=== PATIENT | female | born 1975 | race Caucasian/White ===

== ENCOUNTER → 2020-12-09 14:47 | Outpatient (REF) | payer MEDICAID, SELFPAY | LOC: HO.SL 14:47 | PROVIDERS: PCP Internal Medicine; Visit Provider Family Medicine | DX: Z13.89 Encounter for screening for other disorder (principal) ==

== ENCOUNTER 2022-11-06 19:55 | Outpatient (REF) | payer MEDICAID, SELFPAY ==
[2022-11-13 09:09] LABS: Buprenorphine NEGATIVE; Naloxone NEGATIVE; Norbuprenorphine NEGATIVE
== END 2022-11-06 19:56 | disposition home or self-care (01) ==
LOC: HO.HHCL 19:55
PROVIDERS: Visit Provider Family Medicine
DX: F11.20 Opioid dependence, uncomplicated (principal)
CPT/HCPCS: 80348; 80362

== ENCOUNTER 2022-12-04 11:18 | Outpatient (REF) | payer MEDICAID, SELFPAY ==
[2022-12-13 06:09] LABS: Immunoglobulin E 170 kU/L (<OR=114)
== END 2022-12-04 11:19 | disposition home or self-care (01) ==
LOC: HO.CHCLDS 11:18
PROVIDERS: Visit Provider Internal Medicine
DX: J45.50 Severe persistent asthma, uncomplicated (principal)
CPT/HCPCS: 36415; 82785

== ENCOUNTER 2023-06-06 10:45 | Outpatient (REF) | payer MEDICAID, SELFPAY ==
[2023-06-06 15:15] LABS: Appearance Urine Clear; Color Urine Yellow; Glucose Urine UA Negative (Negative); Leukocyte Esterase Urine Negative (Negative); Nitrite Urine Negative (Negative); Urine Blood Negative (Negative); Urine Ketones Negative (Negative); Urine Protein Negative (Neg-Trace)
[2023-06-06 15:26] LABS: Bacteria Urine 1+ (None Seen); Hyaline Casts Urine 0-2 /LPF (0-2); RBC Urine 0-2 /HPF (0-2); WBC Urine 0-5 /HPF (0-5)
[2023-06-06 15:57] LABS: Vitamin B12 250 pg/mL (200-900)
[2023-06-06 17:57] LABS: Alanine Aminotransferase 20 U/L (0-31); Albumin Level 4.2 g/dL (3.5-5.0); Alkaline Phosphatase 85 U/L (39-117); Anion Gap 14 (12-20); Aspartate Amino Transferase 16 U/L (5-31); Bilirubin Total 0.2 mg/dL (0.0-1.0); Blood Urea Nitrogen 11 mg/dL (9-16); Carbon Dioxide 24 mmol/L (22-29); Chloride 104 mmol/L (96-108); Estimated Glomerular Filt Rate > 60; Glucose Random 103 mg/dL (60-115); Potassium 3.5 mmol/L (3.3-5.1); Sodium 138 mmol/L (135-145)
[2023-06-06 18:18] LABS: TSH reflex Free T4 1.47 uIU/mL (0.32-4.0)
[2023-06-08 10:09] LABS: RPR Rapid Plasma Reagin NON-REACTIVE (NON-REACTIVE)
== END 2023-06-06 10:46 | disposition home or self-care (01) ==
LOC: HO.CHCLDS 10:45
PROVIDERS: Visit Provider Internal Medicine
DX: N39.3 Stress incontinence (female) (male) (principal); R41.3 Other amnesia
CPT/HCPCS: 36415; 80053; 81001; 82607; 84443; 86592

== ENCOUNTER 2023-06-08 12:46 | Outpatient (REF) | payer MEDICAID, SELFPAY | END 2023-06-08 12:47 | disposition home or self-care (01) | LOC: HO.CHCLDS 12:46 | PROVIDERS: Visit Provider Internal Medicine | DX: Z13.89 Encounter for screening for other disorder (principal) ==

== ENCOUNTER 2023-08-06 08:52 | Outpatient (REF) | payer MEDICAID, SELFPAY ==
--- NOTE | ~2023-08-06 | MM_ITS ---
EXAMINATION: MM SCREENING DIGITAL BREAST TOMOSYNTHESIS, BILATERAL CLINICAL INFORMATION: Screening. Asymptomatic. COMPARISON: Mammography: This study is compared with prior exams dating back to 2017. TECHNIQUE: Digital breast tomosynthesis is performed in both the craniocaudal and mediolateral oblique views along with computer-aided detection (CAD). Synthesized 2D images are generated from the tomosynthesis. FINDINGS: The breasts are almost entirely fatty (ACR BI-RADS breast composition Category a). There are no significant masses, abnormal calcifications, or other abnormalities. MM/MM tomosynthesis screening BI IMPRESSION: No mammographic evidence of malignancy. ASSESSMENT: BI-RADS BI-RADS 1 - Negative RECOMMENDATION: Routine annual mammography screening. 1 year F/U This examination should not preclude the clinical evaluation of a suspicious palpable abnormality. This patient's information was entered into a reminder system with a target due date for their next mammogram.
== END 2023-08-06 08:53 | disposition home or self-care (01) ==
LOC: HO.MAMMO 08:52
PROVIDERS: PCP Internal Medicine; Visit Provider Internal Medicine
DX: Z12.31 Encounter for screening mammogram for malignant neoplasm of breast (principal)
CPT/HCPCS: 77063; 77067

== ENCOUNTER → 2023-08-06 09:00 | Outpatient (BNV) | payer MEDICAID, SELFPAY | PROVIDERS: PCP Internal Medicine; Visit Provider Radiology Diagnostic Radiology | DX: Z12.31 Encounter for screening mammogram for malignant neoplasm of breast (principal) | CPT/HCPCS: 77063; 77067 ==

== ENCOUNTER 2024-03-05 12:42 | Outpatient (REF) | payer MEDICAID, SELFPAY ==
[2024-03-05 14:23] LABS: MANUAL DIFF FLAG NO
[2024-03-05 14:24] LABS: Basophils Percent Auto 0.3 % (0-2); Eosinophils Absolute Auto 0.1 X10*3/uL (0.0-0.4); Eosinophils Percent Auto 1.3 % (0-4); Hematocrit 41.5 % (37.0-47.0); Hemoglobin 13.8 g/dl (12.0-16.0); Imm Gran Abs Auto 0.03 X10*3/uL (0.00-0.03); Imm Gran Pct Auto 0.3 % (0.0-0.4); Lymphocytes Percent Auto 46.5 % (20-40); Mean Corpuscular HGB Conc 33.3 g/dl (31.0-35.0); Mean Corpuscular Hemoglobin 31.2 pg (27.0-33.0); Mean Corpuscular Volume 93.7 fL (80.0-98.0); Monocytes Absolute Auto 0.8 X10*3/uL (0.1-1.2); Monocytes Percent Auto 7.1 % (2-11); Neutrophils Absolute Auto 4.8 x10*3/uL (2.0-8.3); Neutrophils Percent Auto 44.5 % (45-73); Platelet Count 213 X10*3/uL (160-400); Red Blood Count 4.43 X10*6/uL (4.20-5.50); Red Cell Distribution Width 14.9 % (11.0-16.0); White Blood Count 10.7 X10*3/uL (4.8-10.8)
[2024-03-05 14:56] LABS: Alanine Aminotransferase 19 U/L (0-31); Albumin Level 4.3 g/dL (3.5-5.0); Alkaline Phosphatase 67 U/L (39-117); Anion Gap 13 (12-20); Aspartate Amino Transferase 25 U/L (5-31); Bilirubin Total 0.5 mg/dL (0.0-1.0); Blood Urea Nitrogen 12 mg/dL (9-16); Calcium 9.4 mg/dL (8.4-10.2); Carbon Dioxide 27 mmol/L (22-29); Chloride 105 mmol/L (96-108); Estimated Glomerular Filt Rate > 60; Glucose Random 86 mg/dL (60-115); Potassium 4.2 mmol/L (3.3-5.1); Sodium 141 mmol/L (135-145); Total Protein 6.9 g/dL (6.5-8.0)
[2024-03-05 15:02] LABS: Vitamin D 25-OH Total 22.1 ng/mL (>30)
[2024-03-05 15:08] LABS: Folate 15.7 ng/mL (> or = 4.0); Vitamin B12 545 pg/mL (200-900)
== END 2024-03-05 12:43 | disposition home or self-care (01) ==
LOC: HO.CHCLDS 12:42
PROVIDERS: Visit Provider Internal Medicine
DX: L84 Corns and callosities (principal); J45.40 Moderate persistent asthma, uncomplicated; R41.3 Other amnesia; M54.50 Low back pain, unspecified; G89.29 Other chronic pain
CPT/HCPCS: 36415; 80053; 82306; 82607; 82746; 85025

== ENCOUNTER 2024-03-18 15:39 | Outpatient (REF) | payer MEDICAID, SELFPAY ==
[2024-03-19 03:51] LABS: CT PCR NOT DETECTED (Not Detect.); NG PCR NOT DETECTED (Not Detect.)
[2024-03-19 11:48] LABS: Bacterial Vaginosis PCR POSITIVE (Negative); Candida Group PCR NOT DETECTED (Not Detect); Candida glab krusei PCR NOT DETECTED (Not Detect); Trichomonas vaginalis PCR NOT DETECTED (Not Detect)
== END 2024-03-18 15:40 | disposition home or self-care (01) ==
LOC: HO.HHCX 15:39
PROVIDERS: Visit Provider Internal Medicine
DX: N89.8 Other specified noninflammatory disorders of vagina (principal); K59.03 Drug induced constipation
CPT/HCPCS: 0352U; 74019; 87491; 87591

== ENCOUNTER 2024-07-24 11:44 | Outpatient (REF) | payer MEDICAID, SELFPAY ==
--- NOTE | ~2024-07-24 | XR_ITS ---
EXAMINATION: XR ABDOMEN KUB CLINICAL INDICATION: severe constipation COMPARISON: None available. TECHNIQUE: AP view of the abdomen. FINDINGS: No gas pattern is normal/nonspecific. There is no focally dilated loop. There is mild to moderate fecal residue seen throughout the colon and rectum. There are cholecystectomy clips present. The liver appears enlarged, with craniocaudad length of 28.5 cm. No additional organomegaly evident. Lung bases appear clear. There are mild to moderate degenerative changes in the lower lumbar spine. No acute bony abnormalities. XR/XR KUB IMPRESSION: Mild to moderate fecal burden seen throughout the colon. No bowel obstruction evident. Hepatomegaly. Cholecystectomy Electronically signed by: Froylan Saenz MD 07/24/2024 02:10 PM EDT
--- OUTSIDE RECORDS SUMMARY | 2024-07-24 14:38 | XMS_ITS | Data Portability ---
Author Organization SNEHAL ORDOÑEZ MD [facility], Main Office Address [address] [place] [address] Assessment No assessment recorded. Plan of Treatment Reminders Order Date Submit Date Provider Last Modified By Organization Details Last Modified Time Details Appointments WEIGHT MANAGMEN T F/U 2024 12:00P M Makenna Hernandez MD Not available Not available Not available Lab rapid flu (A+B) 2024 025 [email or web address] Main Office, [address] [place] [address], [phone], 05/29/2024 16:21:06 culture, wound 2023 024 [email or web address], [address] [place] [address], [address], 01/01/2024 08:54:19 Referral None recorded . Procedures None recorded . Surgeries None recorded . Imaging None recorded . Medication Orders predniso ne 20 mg tablet 2024 025 RAVI [facility], [address] [place], [address], 05/28/2024 17:44:09 azithrom ycin 500 mg tablet 2024 025 [email or web address] [facility], [address] [place], [address], 05/28/2024 18:02:13 [employer]flex COVID-19 Antigen Home Test kit 2024 025 [email or web address] [facility], [address] [place], [address], 05/29/2024 16:21:06 Biktarvy 50 mg-200 mg-25 mg tablet 2024 025 [facility], [address] [place], [address], 05/28/2024 17:44:08 Wegovy 0.25 mg/0.5 mL subcutan eous pen injector 2024 025 [facility], [address] [place], [address], 05/28/2024 17:44:08 fluconaz ole 100 mg tablet 2023 024 [facility], [address] [place], [address], 02/13/2024 10:59:58 doxycycl ine hyclate 100 mg capsule 2023 024 [facility], [address] [place], [address], 02/13/2024 10:59:56 Aldara 5 % topical cream packet 2023 024 [facility], [address] [place], [address], 02/13/2024 10:59:59 Wegovy 1.7 mg/0.75 mL subcutan eous pen injector 2023 024 [facility], [address] [place], [address], 02/13/2024 16:15:41 fluconaz ole 100 mg tablet 2023 024 [facility], [address] [place], [address], 12/25/2023 12:26:15 doxycycl ine hyclate 100 mg capsule 2023 024 [facility], [address] [place], [address], 12/25/2023 12:26:14 Aldara 5 % topical cream packet 2023 024 [facility] [address] [place], [address], 12/25/2023 12:26:15 Wegovy 1 mg/0.5 mL subcutan eous pen injector 2023 024 [facility], [address] [place] [address] , [address], [place], [address], 12/25/2023 12:26:18 doxycycl ine hyclate 100 mg capsule 2023 024 [facility] [address] [place], [address], 11/27/2023 13:26:08 Wegovy 0.25 mg/0.5 mL subcutan eous pen injector 2023 024 [email or web address] Not available 11/27/2023 13:26:06 Wegovy 0.5 mg/0.5 mL subcutan eous pen injector 2023 024 [facility] [address] [place], [address], 11/28/2023 09:53:48 Patient TargetsNo targets recorded. Patient InstructionsNo instructions recorded. Reason for Referral None Reported. Results Created Date Observation Date Name Description Value Unit Range Abnormal Flag Note LastModifiedBy Organization Detail LastModifiedTime 12/25/19 24 12/25/2023 BRADLEY SEAMAN RE performing lab Perfor nickie [facility] michaelle garcia, a medardo r of [facility] [address] [facility] [place] [address] Medic al Dire amy roberts MD Not Available [facility] [address], [place], [address], 12/29/2023 11:02:00 12/25/19 24 12/29/2023 MISCE LLANE OUS CULTU RE miscellaneou s culture NORMAL ORAL NAKUL PRESEN T DIRK DA CJ I DIRK DA ALBIC ANS Not Available [facility] [address] [place] [address], [address], 12/29/2023 11:02:00 12/25/19 24 12/25/2023 FUNGU S CULTU RE,OT HER performing lab Perfor nickie [facility] atorromero garcia, kecia batres r of [facility] h Of [address] [place] [address] Medic al Direc amy roberts MD Not Available [facility] [address] [place] [address], [address], 01/03/2024 13:50:44 12/25/19 24 01/01/2024 FUNGU S CULTU RE,OT HER fungus culture,othe r DIRK DA ALBIC ANS /DUBL INIEN SIS YEAST ORGAN ISM REPOR T COMME NT NOT DIRK DA ALBIC ANS/D UBLIN IENSI S OR CRYPT OCOCC US SPECI ES Not Available [facility] [address] [place] [address], [address], 01/03/2024 13:50:44 05/29/19 25 05/29/2024 ASPAR RIBERA AMINO TRANS FERAS E AST (SGOT) 14 unit/ L 10-42 Not Available [facility] [address] [place] [address], [address], 05/29/2024 15:55:24 05/29/19 25 05/29/2024 ASPAR RIBERA AMINO TRANS FERAS E note See Report [facility] michaelle garcia, [address] [place] [address], Anastasiya Angulo [facility] [address] Not Available [facility] [address] [place] [address], [address], 05/29/2024 15:55:24 05/29/19 25 05/29/2024 EDUARD NE AMINO TRANS FERAS E ALT (SGPT) 22 unit/ L 10-60 Not Available [facility] [address] [place] [address], [address], 05/29/2024 15:55:25 05/29/19 25 05/29/2024 EDUARD NE AMINO TRANS FERAS E note See Report [facility], [address] [facility], Oswaldochuy elyselaureano valenzuela, [place]astasiya [facility] [place] [place] [address] Not Available [facility] [address] [place], [address], 05/29/2024 15:55:25 05/29/19 25 05/29/2024 ELECT ROLYT E PANEL sodium 144 mmol/ L 133-14 5 Not Available [facility] [address] [place] [address], [address], 05/29/2024 15:55:26 05/29/19 25 05/29/2024 ELECT ROLYT E PANEL potassium 4.4 mmol/ L 3.5-5. 5 Not Available [facility] [address] [place] [address], [address], 05/29/2024 15:55:26 05/29/19 25 05/29/2024 ELECT ROLYT E PANEL chloride 109 mmol/ L 96-110 Not Available [facility] [address] [place] [address], [address], 05/29/2024 15:55:26 05/29/19 25 05/29/2024 ELECT ROLYT E PANEL CO2 28 mmol/ L 21-32 Not Available [facility] [address] [place] [address], [address], 05/29/2024 15:55:26 05/29/19 25 05/29/2024 ELECT ROLYT E PANEL anion gap 7 3-11 Not Available [facility] [address] [place] [address], [address], 05/29/2024 15:55:26 05/29/19 25 05/29/2024 ELECT ROLYT E PANEL note See Report [facility], [address] [facility], Oswaldochuy elyselaureano valenzuela, [place] [address] Not Available [facility] [address] [place], [address], 05/29/2024 15:55:26 05/29/19 25 05/29/2024 CREAT ININE creatinine 0.75 mg/dL 0.50-1 .10 Not Available [facility] [address] [place] [address], [address], 05/29/2024 15:55:27 05/29/19 25 05/29/2024 CREAT ININE eGFR 98 mL/mi n/1.7 3m2 >=60 Calcu latio n based on the Chron ic Kidne y Disea se Epide miolo gy Colla borat ion (CKD- EPI) equat ion refit witho ut adjus tment for race. Not Available [facility] [address] [place] [address], [address], 05/29/2024 15:55:27 05/29/19 25 05/29/2024 CREAT ININE note See Report [facility], [address] [facility], [address], [place] [address] Not Available [facility] [address] [place] [address], [address], 05/29/2024 15:55:27 05/29/19 25 05/29/2024 CBC WITH AUTO DIFFE RENTI AL WBC 7.8 K/mcL 4.8-10 .8 Not Available [facility] [address] [place] [address], [address], 05/29/2024 16:08:32 05/29/19 25 05/29/2024 CBC WITH AUTO DIFFE RENTI AL RBC 3.80 M/mcL 3.80-4 .80 Not Available [facility] [address] [place] [address], [address], 05/29/2024 16:08:32 05/29/19 25 05/29/2024 CBC WITH AUTO DIFFE RENTI AL hemoglobin 12.1 g/dL 11.5-1 6.0 Not Available [facility] [address] [place] [address], [address], 05/29/2024 16:08:32 05/29/19 25 05/29/2024 CBC WITH AUTO DIFFE RENTI AL hematocrit 37.6 % 35.0-4 7.0 Not Available [facility] [address] [place], [address], 05/29/2024 16:08:32 05/29/19 25 05/29/2024 CBC WITH AUTO DIFFE RENTI AL MCV 98.4 fL 79.0-9 8.0 high Not Available [facility] [address] [place], [address], 05/29/2024 16:08:32 05/29/19 25 05/29/2024 CBC WITH AUTO DIFFE RENTI AL MCH 31.7 pcg 27.0-3 2.0 Not Available [facility] [address] [place], [address], 05/29/2024 16:08:32 05/29/19 25 05/29/2024 CBC WITH AUTO DIFFE RENTI AL MCHC 32.2 g/dL 32.0-3 7.0 Not Available [facility] [address] [place], [address], 05/29/2024 16:08:32 05/29/19 25 05/29/2024 CBC WITH AUTO DIFFE RENTI AL RDW 14.7 % 11.0-1 5.0 Not Available [facility] [address] [place], [address], 05/29/2024 16:08:32 05/29/19 25 05/29/2024 CBC WITH AUTO DIFFE RENTI AL platelets 315 K/mcL 130-40 0 Not Available [facility] [address] [place], [address], 05/29/2024 16:08:32 05/29/19 25 05/29/2024 CBC WITH AUTO DIFFE RENTI AL MPV 9.9 fL 7.0-11 .0 Not Available [facility] [address] [place], [address], 05/29/2024 16:08:32 05/29/19 25 05/29/2024 CBC WITH AUTO DIFFE RENTI AL NRBC 0.0 % <1.0 Not Available [facility] [address] [place], [address], 05/29/2024 16:08:32 05/29/19 25 05/29/2024 CBC WITH AUTO DIFFE RENTI AL NRBC absolute 0.00 K/mcL <0.10 Not Available [facility] [address] [place], [address], 05/29/2024 16:08:32 05/29/19 25 05/29/2024 CBC WITH AUTO DIFFE RENTI AL note See Report [facility], [address] [facility], [address], [place] [address] Not Available [facility] [address] [place] [address], [address], 05/29/2024 16:08:32 05/29/19 25 05/29/2024 MANUA L DIFFE RENTI AL - INSTR UMENT DIFFE RENTI AL neutrophils % 49.0 % Not Available [facility] [address] [place], [address], 05/29/2024 16:08:33 05/29/19 25 05/29/2024 MANUA L DIFFE RENTI AL - INSTR UMENT DIFFE RENTI AL lymphocytes % 37.0 % Not Available [facility] [address] [place] [address], [address], 05/29/2024 16:08:33 05/29/19 25 05/29/2024 MANUA L DIFFE RENTI AL - INSTR UMENT DIFFE RENTI AL reactive lymphocyte 8.00 % Not Available [facility] [address] [place] [address], [address], 05/29/2024 16:08:33 05/29/19 25 05/29/2024 MANUA L DIFFE RENTI AL - INSTR UMENT DIFFE RENTI AL monocytes % 5.0 % Not Available [facility] [address] [place] [address], [address], 05/29/2024 16:08:33 05/29/19 25 05/29/2024 MANUA L DIFFE RENTI AL - INSTR UMENT DIFFE RENTI AL eosinophils % 1.0 % Not Available [facility] [address] [place], [address], 05/29/2024 16:08:33 05/29/19 25 05/29/2024 MANUA L DIFFE RENTI AL - INSTR UMENT DIFFE RENTI AL basophils % 1.0 % Not Available [facility] [address] [place], [address], 05/29/2024 16:08:33 05/29/19 25 05/29/2024 MANUA L DIFFE RENTI AL - INSTR UMENT DIFFE RENTI AL neutrophils absolute manual 3.82 K/mcL 1.50-7 .00 Not Available [facility] [address] [place], [address], 05/29/2024 16:08:33 05/29/19 25 05/29/2024 MANUA L DIFFE RENTI AL - INSTR UMENT DIFFE RENTI AL lymphocytes absolute 2.89 K/mcL 1.00-5 .00 Not Available [facility] [address] [place], [address], 05/29/2024 16:08:33 05/29/19 25 05/29/2024 MANUA L DIFFE RENTI AL - INSTR UMENT DIFFE RENTI AL reactive lymph abs manual 0.62 lym 0.00-0 .00 high Not Available [facility] [address] [place], [address], 05/29/2024 16:08:33 05/29/19 25 05/29/2024 MANUA L DIFFE RENTI AL - INSTR UMENT DIFFE RENTI AL monocytes absolute manual 0.39 K/mcL 0.20-1 .00 Not Available [facility] [address] [place], [address], 05/29/2024 16:08:33 05/29/19 25 05/29/2024 MANUA L DIFFE RENTI AL - INSTR UMENT DIFFE RENTI AL eosinophils absolute manual 0.08 K/mcL 0.00-0 .50 Not Available [facility] [address] [place], [address], 05/29/2024 16:08:33 05/29/19 25 05/29/2024 MANUA L DIFFE RENTI AL - INSTR UMENT DIFFE RENTI AL basophils absolute manual 0.08 K/mcL 0.00-0 .20 Not Available [facility] [address] [place], [address], 05/29/2024 16:08:33 05/29/19 25 05/29/2024 MANUA L DIFFE RENTI AL - INSTR UMENT DIFFE RENTI AL RBC morphology Consis tent with indice s consis tent with indice s, normal for newbor n Not Available [facility] [address] [place] [address], [address], 05/29/2024 16:08:33 05/29/19 25 05/29/2024 MANUA L DIFFE RENTI AL - INSTR UMENT DIFFE RENTI AL platelet morphology - wam See Note normal abnormal PLT: Lupe l Not Available [facility] [address] [place], [address], 05/29/2024 16:08:33 05/29/19 25 05/29/2024 MANUA L DIFFE RENTI AL - INSTR UMENT DIFFE RENTI AL note See Report abnormal [facility], [address] [facility], [place]aldoin gfiel d, [place] [address] Not Available [facility] [address] [place], [address], 05/29/2024 16:08:33 05/29/19 25 05/29/2024 TREPO NEMA PALLI DUM ANTIB LUIS WITH REFLE X TO RPR AND PARTI MOY AGGLU TINAT ION T. pallidum antibodies Negati ve negati ve Not Available [facility] [address] [place], [address], 05/29/2024 16:08:34 05/29/19 25 05/29/2024 TREPO NEMA PALLI DUM ANTIB LUIS WITH REFLE X TO RPR AND PARTI MOY AGGLU TINAT ION note See Report [facility], [address] [facility], [address], [facility] [place] [address] Not Available [facility] [address] [place], [address], 05/29/2024 16:08:34 05/29/19 25 05/29/2024 HIV 1 MOLEC ULAR STUDY QUANT ITATI VE HIV-1 RNA interpretati on Not Detect ed not detect ed HIV RNA not detec dayami, unabl e to repor t quant itati ve resul ts. Not Available [facility] [address] [place], [address], 05/30/2024 08:17:51 05/29/19 25 05/29/2024 HIV 1 MOLEC ULAR STUDY QUANT ITATI VE note See Report [facility], [address] [facility], [address], [facility] [place] [address] Not Available [facility] [address] [place], [address], 05/30/2024 08:17:51 05/29/19 25 05/29/2024 HEPAT ITIS C VIRUS QUANT ITATI VE MOLEC ULAR STUDY HCV qual interp Not Detect ed not detect ed HCV RNA not detec dayami, unabl e to repor t quant itati ve resul ts. Not Available [facility] [address] [place], [address], 05/30/2024 08:17:53 05/29/19 25 05/29/2024 HEPAT ITIS C VIRUS QUANT ITATI VE MOLEC ULAR STUDY note See Report [facility], [address] [facility], [address], [facility] [place] [address] Not Available [facility] [address] [place], [address], 05/30/2024 08:17:53 05/29/19 25 05/29/2024 CHLAM YDIA TRACH OMATI S AND NEISS ERIA GONOR RHOEA E MOLEC ULAR STUDY .note See Note Origi nal Order ing Provi donna: PAMELA IA T MARTO SMITA [facility] - [facility] - [address] [facility], [address], [place] [address] Not Available [facility] [address] [place], [address], 05/30/2024 09:06:52 05/29/19 25 05/29/2024 CHLAM YDIA TRACH OMATI S AND NEISS ERIA GONOR RHOEA E MOLEC ULAR STUDY neisseria gonorrhoeae PCR Negati ve negati ve Not Available [facility] [address] [place], [address], 05/30/2024 09:06:52 05/29/19 25 05/29/2024 CHLAM YDIA TRACH OMATI S AND NEISS ERIA GONOR RHOEA E MOLEC ULAR STUDY chlamydia trachomatis PCR Negati ve negati ve Not Available [facility] [address] [place] [address], [address], 05/30/2024 09:06:52 05/29/19 25 05/29/2024 LYMPH OCYTE T-RD L PANEL cd4 1007 cells /mcL 426-17 76 Not Available [facility] [address] [place] [address], [address], 05/30/2024 13:40:24 05/29/19 25 05/29/2024 LYMPH OCYTE T-RD L PANEL cd8 1080 cells /mcL 161-83 8 high Not Available [facility] [address] [place] [address], [address], 05/30/2024 13:40:24 05/29/19 25 05/29/2024 LYMPH OCYTE T-RD L PANEL cd4/cd8 ratio 0.93 0.90-4 .90 Not Available [facility] [address] [place] [address], [address], 05/30/2024 13:40:24 05/29/19 25 05/29/2024 LYMPH OCYTE T-RD L PANEL cd4 % 35 % 33-64 Not Available [facility] [address] [place] [address], [address], 05/30/2024 13:40:24 05/29/19 25 05/29/2024 LYMPH OCYTE T-RD L PANEL cd8 % 37 % 10-39 Not Available [facility] [address] [place], [address], 05/30/2024 13:40:24 05/29/19 25 05/29/2024 LYMPH OCYTE T-RD L PANEL note See Report [facility], [address] [facility], Sprin gfiel d, [place] [address] Not Available [facility] [address] [place], [address], 05/30/2024 13:40:24 05/29/19 25 05/29/2024 rapid flu (A+B) Flu negati ve Not Available Main Office [address] [place] [address], [address], 05/29/2024 16:10:34 10/15/19 24 09/10/2023 elect winifred ramey am No observ ation record ed. [email or web address] Main Office [address] [place] [address], [address], 10/15/2023 15:37:23 Result Notes None recorded. 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 Human immunodefi ciency virus infection; snomeddesc ription: Human immunodefi ciency virus infection; Report Immunity to Registry: Yes; Human immunodefi ciency virus [HIV] disease; snomeddesc ription: Human immunodefi ciency virus infection; Report Immunity to Registry: Yes; Not Available [facility] 4 06:57:46 Condyloma acuminata of cervix 734291065 Active 2018 Condyloma acuminata of cervix; snomeddesc ription: Condyloma acuminata of cervix; Report Immunity to Registry: Yes; Notes: hx anal/genit al; Not Available [facility] 4 06:57:46 Acute vaginitis 34679090 Active 2021 Acute vaginitis; snomeddesc ription: Bacterial vaginosis; Report Immunity to Registry: Yes; Not Available [facility] 4 06:57:47 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 Methicilli n resistant Staphyloco ccus aureus infection; snomeddesc ription: Methicilli n resistant Staphyloco ccus aureus infection; Report Immunity to Registry: Yes; Notes: MRSA susc Bactrim/Do xy/cipro/c sheldon/gent /levo/line zolid;vanc o/tigec/ri f; Methicill in resistant Staphyloco ccus aureus infection, unspecifie d site; snomeddesc ription: Methicilli n resistant Staphyloco ccus aureus infection; Report Immunity to Registry: Yes; Notes: MRSA susc Bactrim/Do xy/cipro/c sheldon/gent /levo/line zolid;vanc o/tigec/ri f; Not Available [facility] 4 06:57:47 Bacterial vaginosis 865332806 Active 2021 Bacterial vaginosis; snomeddesc ription: Bacterial vaginosis; Report Immunity to Registry: Yes; Not Available [facility] 4 06:57:47 Genital herpes simplex 81404497 Active 2019 Genital herpes simplex; snomeddesc ription: Genital herpes simplex; Report Immunity to Registry: Yes; Notes: HSV 1 and 2 pos serology; Not Available [facility] 4 06:57:47 Anogenita l herpesvir al infection 526423561 Active 2019 Anogenital herpesvira l infection, unspecifie d; snomeddesc ription: Genital herpes simplex; Report Immunity to Registry: Yes; Notes: HSV 1 and 2 pos serology; Not Available [facility] 4 06:57:47 COVID-19 474466908 Active 2021 COVID-19; snomeddesc ription: COVID-19; Report Immunity to Registry: Yes; COVID-19; snomeddesc ription: COVID-19; Report Immunity to Registry: Yes; Not Available [facility] 4 06:57:47 Problem Notes None recorded. Procedures Surgical History None recorded. Imaging Results Imaging Date Name Status LastModified by Organization Details LastModified Time 09/10/2023 electrocardiogram completed [email or web address] [address], [address], 10/15/2023 15:37:23 Procedure Notes None recorded. Medical Equipment None Reported. Allergies Allergen ID Allergen Name Allergen Category Reaction Reaction Severity Criticality Documentation Date Start Date Code Code System Note Provider Name and Address Organization Details Recorded Time 681 Bactrim medicatio n Not available Not available Not available 05/30/20232017 97121 9 RxNorm Comme nt: adver se_ev ent_t ype: 17371 8002; ; Not Available [facility] 4 06:50:43 682 morphine medicatio n Not available Not available Not available 05/30/20232017 7052 RxNorm Comme nt: adver se_ev ent_t ype: 55878 8002; ; Not Available [facility] 4 06:50:43 Medications Name Sig Start Date Stop Date Status Note LastModified by Organization Details LastModified Time medbox status USE DIRECTED active Not Available Not Available No t Available cyclobenz aprine 10 mg tablet TAKE ONE TABLET TWICE DAILY 09/19 completed Duration : 15; VACCINE_ IND: no; Not Available Not Available Not Available ziprasido ne 80 mg capsule TAKE ONE CAPSULE IN THE MORNING AND EVENING WITH MEALS active Not Available Not Available No t Available fluconazo le 100 mg tablet PLEASE SEE ATTACHED FOR DETAILED DIRECTIO NS active Not Available Not Available No t Available lamotrigi ne 150 mg tablet TAKE ONE TABLET EVERY MORNING 12/25 completed Duration : 30; VACCINE_ IND: no; Not Available Not Available Not Available silver sulfadiaz ine 1 % topical cream APPLY TOPICALL Y TO BUTTOCK WOUNDS TWICE DAILY UNTIL HEALED 02/10 completed Duration : 14; VACCINE_ IND: no; Not Available Not Available Not Available nystatin 100,000 unit/mL oral suspensio n 5cc po swish and swallow qid 04/18 completed Duration : 10; VACCINE_ IND: no; SU_FULL_ NAME: Makenna naranjo; Not Available Not Available Not Available clonidine HCl 0.1 mg tablet TAKE ONE TABLET BY MOUTH TWICE DAILY NEEDED FOR ANXIETY, OR TAKE 1 OR 2 TABLETS BY MOUTH AT BEDTIME NEEDED 01/05 completed Duration : 30; VACCINE_ IND: no; Not Available Not Available Not Available prednison e 10 mg tablet TAKE 6 TABLETS FOR 2 DAYS, THEN TAKE 5 TABLETS FOR 2 DAYS, THEN TAKE 4 TABLETS FOR 2 DAYS, THEN TAKE 3 TABLETS FOR 2 DAYS, TAKE 2 TABLETS FOR 2 DAYS, TAKE 1 TABLET FOR 2 DAYS 12/19 completed Duration : 12; VACCINE_ IND: no; Not Available Not Available Not Available venlafaxi ne ER 75 mg capsule,e xtended release 24 hr TAKE ONE CAPSULE EVERY MORNING WITH 150 MG CAPSULE active Not Available Not Available No t Available doxycycli ne hyclate 100 mg capsule TAKE 1 CAPSULE BY MOUTH TWICE A DAY FOR 10 DAYS active Not Available Not Available No t Available lamotrigi ne 200 mg tablet TAKE 1 TABLET BY MOUTH TWICE A DAY active Not Available Not Available No t Available nicotine 14 mg/24 hr daily transderm al patch APPLY 1 PATCH TOPICALL Y TO THE SKIN DAILY IN THE MORNING THEN REMOVE AT BEDTIME DIRECTED DO NOT SMOKE WHILE USING PATCH 12/19 completed Duration : 28; VACCINE_ IND: no; Not Available Not Available Not Available ipratropi um 0.5 mg-albute rol 3 mg (2.5 mg base)/3 mL nebulizat ion soln USE ONE AMPULE USING A NEBULIZE R EVERY 6 TO 8 HOURS 12/19 completed Duration : 8; VACCINE_ IND: no; Not Available Not Available Not Available clindamyc in HCl 300 mg capsule TAKE ONE CAPSULE BY MOUTH THREE TIMES DAILY FOR 7 DAYS active Not Available Not Available No t Available albuterol sulfate 2.5 mg/3 mL (0.083 %) solution for nebulizat ion INHALE ONE AMPULE USING A NEBULIZE R FOUR TIMES DAILY NEEDED. 05/12 completed Duration : 8; VACCINE_ IND: no; Not Available Not Available Not Available ammonium lactate 12 % lotion Apply to soles of feet daily. At night wear socks to bed active Not Available Not Available No t Available citalopra m 40 mg tablet TAKE ONE TABLET EVERY MORNING 06/30 completed Duration : 30; VACCINE_ IND: no; Not Available Not Available Not Available azithromy aurelia 250 mg tablet TAKE 2 TABLETS BY MOUTH ON DAY 1, THEN TAKE 1 TABLET DAILY ON DAYS 2-5 active Not Available Not Available No t Available tizanidin e 4 mg tablet TAKE ONE TABLET TWICE DAILY 05/12 completed Duration : 7; VACCINE_ IND: no; Not Available Not Available Not Available albuterol sulfate 1.25 mg/3 mL solution for nebulizat ion USE ONE AMPULE USING A NEBULIZE R EVERY 4 HOURS NEEDED FOR SHORTNES S OF BREATH 12/19 completed Duration : 4; VACCINE_ IND: no; Not Available Not Available Not Available prednison e 20 mg tablet TAKE ONE TABLET EVERY DAY FOR 5 DAYS active Not Available Not Available No t Available clonazepa m 0.5 mg tablet TAKE ONE TABLET THREE TIMES DAILY NEEDED FOR ANXIETY 02/10 completed Duration : 30; VACCINE_ IND: no; Not Available Not Available Not Available terconazo le 0.8 % vaginal cream INSERT 1 APPLICAT ORFUL VAGINALL Y EVERY NIGHT AT BEDTIME FOR 3 DAYS 05/30 completed Duration : 3; VACCINE_ IND: no; Not Available Not Available Not Available clonazepa m 1 mg tablet TAKE 1 TABLET BY MOUTH THREE TIMES A DAY NEEDED FOR ANXIETY active Not Available Not Available No t Available clindamyc in HCl 150 mg capsule TAKE ONE CAPSULE BY MOUTH FOUR TIMES DAILY FOR SEVEN DAYS 06/27 completed Duration : 7; VACCINE_ IND: no; Not Available Not Available Not Available venlafaxi ne ER 150 mg capsule,e xtended release 24 hr TAKE 1 CAPSULE BY MOUTH EVERY DAY IN THE MORNING active Not Available Not Available No t Available olanzapin e 10 mg tablet TAKE ONE TABLET BY MOUTH AT BEDTIME 12/25 completed Duration : 30; VACCINE_ IND: no; Not Available Not Available Not Available metronida zole 500 mg tablet TAKE ONE TABLET TWICE DAILY UNTIL FINISHED active Not Available Not Available No t Available valacyclo vir 500 mg tablet TAKE ONE TABLET EVERY NIGHT AT BEDTIME 2024 active Not Available Not Available Not Avai lable ciproflox acin 500 mg tablet TAKE 1 TABLET BY MOUTH EVERY 12 HOURS FOR 5 DAYS active Not Available Not Available No t Available omeprazol e 40 mg capsule,d elayed release 1 tab p qd 2023 active Not Available Not Available Not Avai lable Nicotrol 10 mg inhalatio n cartridge INHALE ONE INHALATI ON SIX TIMES DAILY NEEDED 12/19 completed Duration : 28; VACCINE_ IND: no; Not Available Not Available Not Available tramadol 50 mg tablet TAKE ONE TABLET EVERY 6 HOURS NEEDED FOR PAIN 09/19 completed Duration : 5; VACCINE_ IND: no; Not Available Not Available Not Available acetamino phen 500 mg tablet TAKE TWO TABLETS EVERY 6 HOURS NEEDED FOR PAIN active Not Available Not Available No t Available lidocaine -prilocai ne 2.5 %-2.5 % topical cream APPLY TO THE AFFECTED AREA(S) DAILY DIRECTED active Not Available Not Available No t Available baclofen 20 mg tablet TAKE ONE TABLET TWICE DAILY NEEDED FOR MUSCLE SPASMS 02/16 completed Duration : 15; VACCINE_ IND: no; Not Available Not Available Not Available ketorolac 10 mg tablet TAKE ONE TABLET EVERY TWELVE HOURS FOR UP TO FIVE DAYS total 05/12 completed Duration : 3; VACCINE_ IND: no; Not Available Not Available Not Available ciclopiro x 8 % topical solution Apply daily to nails, clean medicati on residue off of nail plate every 3 days with rubbing alcohol active Not Available Not Available No t Available oxycodone -acetamin ophen 5 mg-325 mg tablet TAKE 1 TO 2 TABLETS BY MOUTH EVERY 6 HOURS NEEDED FOR MODERATE PAIN 12/25 completed Duration : 7; VACCINE_ IND: no; Not Available Not Available Not Available famotidin e 20 mg tablet TAKE ONE TABLET TWICE DAILY IN THE MORNING AND AT BEDTIME active Not Available Not Available No t Available methocarb damon 750 mg tablet TAKE 2 TABLETS BY MOUTH EVERY 6 HOURS NEEDED FOR ANALGESI A active Not Available Not Available No t Available imiquimod 5 % topical cream packet APPLY TO THE AFFECTED WART AREA(S) BY TOPICAL ROUTE EVERY OTHER DAY active Not Available Not Available No t Available benzonata te 100 mg capsule TAKE ONE CAPSULE THREE TIMES DAILY NEEDED FOR COUGH active Not Available Not Available No t Available Mylanta Double-St rength 400 mg-400 mg-40 mg/5 mL oral suspensio n 400 mg-400 mg-40 mg/5 mL Quantity : 60; Duration : 30; 2 refill(s ) 05/12 completed Frequenc y: bid; Duration : 30; VACCINE_ IND: no; SU_FULL_ NAME: Makenna naranjo; Not Available Not Available Not Available ranitidin e 150 mg tablet TAKE ONE TABLET TWICE DAILY IN THE MORNING AND AT BEDTIME 04/18 completed Duration : 30; VACCINE_ IND: no; Not Available Not Available Not Available lidocaine 5 % topical patch APPLY 1 PATCH TO SKIN. LEAVE ON FOR 12 HOURS, THEN OFF FOR 12 HOURS DIRECTED . 03/01 completed Duration : 30; VACCINE_ IND: no; Not Available Not Available Not Available benztropi ne 1 mg tablet TAKE ONE TABLET TWICE DAILY IN THE MORNING AND AT BEDTIME active Not Available Not Available No t Available nicotine 21 mg/24 hr daily transderm al patch APPLY 1 PATCH TOPICALL Y TO THE SKIN DAILY IN THE MORNING THEN REMOVE AT BEDTIME DIRECTED DO NOT SMOKE WHILE USING PATCH 12/19 completed Duration : 28; VACCINE_ IND: no; Not Available Not Available Not Available Advair Diskus 500 mcg-50 mcg/dose powder for inhalatio n INHALE ONE PUFF TWICE DAILY, RINSE MOUTH AFTER USE active Not Available Not Available No t Available mupirocin calcium 2 % topical cream apply small ampunt on affected skin area daily 06/16 completed Duration : 14; VACCINE_ IND: no; SU_FULL_ NAME: Makenna naranjo; Not Available Not Available Not Available docusate sodium 100 mg capsule TAKE ONE CAPSULE AT BEDTIME NEEDED FOR CONSTIPA TION active Not Available Not Available No t Available monteluka st 10 mg tablet TAKE ONE TABLET EVERY NIGHT AT BEDTIME active Not Available Not Available No t Available mupirocin 2 % topical ointment APPLY A SMALL AMOUNT TO AFFECTED AREA 3 TIMES A DAY active Not Available Not Available No t Available ziprasido ne 40 mg capsule TAKE ONE CAPSULE IN THE MORNING AND EVENING WITH MEALS active Not Available Not Available No t Available ibuprofen 600 mg tablet TAKE 1 TABLET BY MOUTH EVERY 6 HOURS NEEDED FOR ANALGESI A MAX 2400 MG/DAY active Not Available Not Available No t Available zolpidem 10 mg tablet TAKE 1 TABLET BY MOUTH EVERY DAY AT BEDTIME NEEDED FOR SLEEP active Not Available Not Available No t Available ondansetr on 4 mg disintegr ating tablet TAKE 1 TABLET BY MOUTH EVERY 6-8 HOURS 05/30 completed Duration : 3; VACCINE_ IND: no; Not Available Not Available Not Available doxycycli ne hyclate 100 mg tablet TAKE ONE TABLET TWICE DAILY FOR 10 DAYS. TAKE WITH FULL GLASS OF WATER AND DO NOT LIE DOWN FOR 30 MINUTES AFTER active Not Available Not Available No t Available olanzapin e 20 mg tablet TAKE ONE TABLET EVERY NIGHT AT BEDTIME active Not Available Not Available No t Available lamotrigi ne 100 mg tablet TAKE ONE TABLET AT BEDTIME 09/19 completed Duration : 30; VACCINE_ IND: no; Not Available Not Available Not Available diazepam 5 mg tablet TAKE 1 TABLET BY MOUTH 3 TIMES A DAY NEEDED FOR ANAL SPASMS 12/25 completed Duration : 13; VACCINE_ IND: no; Not Available Not Available Not Available amoxicill in 875 mg-potass ium clavulana te 125 mg tablet TAKE ONE TABLET TWICE DAILY FOR 10 DAYS active Not Available Not Available No t Available Ventolin HFA 90 mcg/actua tion aerosol inhaler INHALE TWO PUFFS BY MOUTH EVERY FOUR HOURS NEEDED FOR WHEEZING active Not Available Not Available No t Available oxycodone 5 mg tablet TAKE ONE TABLET EVERY 6 HOURS NEEDED FOR PAIN 09/19 completed Duration : 5; VACCINE_ IND: no; Not Available Not Available Not Available Pneumovax -23 25 mcg/0.5 mL injection syringe - Quantity : ; 0 refill(s ) 2021 active VACCINE_ IND: yes; VACCINE_ NAME: pneumoco ccal polysacc haride PPV23; SU_FULL_ NAME: Makenna naranjo; VIS_DATE : 14:43:37 .0; Not Available Not Available Not Available azithromy aurelia 500 mg tablet TAKE 1 TABLET BY MOUTH ONCE A DAY FOR 2 DAYS active Not Available Not Available No t Available guaifenes in 400 mg tablet TAKE ONE TABLET EVERY 8 HOURS NEEDED FOR COUGH 02/16 completed Duration : 10; VACCINE_ IND: no; Not Available Not Available Not Available nicotine (polacril ex) 4 mg buccal lozenge Dissolve 1 lozenge (4 mg) in the mouth every 2 (two) hours if needed for smoking cessatio n. active Not Available Not Available No t Available Jolivette 0.35 mg tablet TAKE 1 TABLET BY MOUTH EVERY DAY TAKE AT THE SAME TIME EACH DAY 05/30 completed Duration : 84; VACCINE_ IND: no; Not Available Not Available Not Available duloxetin e 30 mg capsule,d elayed release TAKE ONE CAPSULE EVERY MORNING 02/16 completed Duration : 30; VACCINE_ IND: no; Not Available Not Available Not Available Flovent HFA 220 mcg/actua tion aerosol inhaler INHALE 1 PUFF BY MOUTH TWICE DAILY, RINSE MOUTH AFTER USE 06/30 completed Duration : 60; VACCINE_ IND: no; Not Available Not Available Not Available Hibiclens use daily as directed for 10 days 07/16 completed Duration : 10; VACCINE_ IND: no; SU_FULL_ NAME: Makenna naranjo; Not Available Not Available Not Available varenicli ne tartrate 0.5 mg (11)-1 mg (42) tablets in a dose pack TAKE DIRECTED ON PACKAGE active Not Available Not Available No t Available Advair HFA 230 mcg-21 mcg/actua tion aerosol inhaler INHALE TWO PUFFS TWICE DAILY IN THE MORNING AND AT BEDTIME, RINSE MOUTH AFTER USE active Not Available Not Available No t Available cholecalc iferol (vitamin D3) 25 mcg (1,000 unit) tablet TAKE ONE TABLET EVERY MORNING active Not Available Not Available No t Available Symbicort 160 mcg-4.5 mcg/actua tion HFA aerosol inhaler INHALE TWO PUFFS BY MOUTH EVERY TWELVE HOURS. RINSE MOUTH AFTER USE active Not Available Not Available No t Available Engerix-B (PF) 20 mcg/mL intramusc ular suspensio n 20 mcg/mL Quantity : ; 0 refill(s ) 2021 active VACCINE_ IND: yes; VACCINE_ DOCUMENT _DATE: 00:00:00 ; VACCINE_ DOCUMENT _NAME: Hepatiti s B: 01/21/21 ; VACCINE_ NAME: Hep B, adult; SU_FULL_ NAME: Makenna naranjo; VIS_DATE : 15:37:44 .0; Not Available Not Available Not Available diclofena c 1 % topical gel apply 2 gram by topical route 4 times every day to the affected area(s) 02/16 completed Duration : 8; VACCINE_ IND: no; Not Available Not Available Not Available Norvir 100 mg tablet TAKE ONE TABLET AT BEDTIME 05/18 completed Duration : 30; VACCINE_ IND: no; Not Available Not Available Not Available Suboxone 8 mg-2 mg sublingua l film DISSOLVE 3 FILMS UNDER THE TONGUE DAILY active Not Available Not Available No t Available Kassandra 30 mg tablet TAKE 1 TABLET BY MOUTH ONCE DIRECTED 09/19 completed Duration : 1; VACCINE_ IND: no; Not Available Not Available Not Available Chantix Continuin g Month Box 1 mg tablet TAKE ONE TABLET BY MOUTH TWICE DAILY AFTER MEALS WITH GLASS OF WATER 12/25 completed Duration : 28; VACCINE_ IND: no; Not Available Not Available Not Available imiquimod 3.75 % topical cream in a pump 3.75% 7.5 Gram(s) APPLY SMALL AMOUNT TO WARTS THREE TIMES PER WEEK UNTIL THERE IS TOTAL CLEARANC E OF THE WARTS OR FOR A MAXIMUM OF 16 WEEKS. A THIN LAYER OF IMIQUIMO D CREAM SHOULD BE APPLIED TO WART AND RUBBED IN UNTIL THE CREAM IS NO LONGER VISIBLE. IMIQUIMO D CREAM SHOULD BE APPLIED PRIOR TO NORMAL SLEEPING HOURS AND LEFT ON THE SKIN FOR 6 TO 10 HOURS, AFTER WHICH THE CREAM SHOULD BE REMOVED BY WASHING THE AREA WITH MILD SOAP AND WATER. 08/29 completed Duration : 14; VACCINE_ IND: no; SU_FULL_ NAME: Makenna naranjo; Not Available Not Available Not Available Prezista 800 mg tablet TAKE ONE TABLET AT BEDTIME 05/18 completed Duration : 30; VACCINE_ IND: no; Not Available Not Available Not Available Suboxone 4 mg-1 mg sublingua l film DISSOLVE 1 FILM UNDER THE TONGUE TWICE DAILY active Not Available Not Available No t Available Tivicay 50 mg tablet TAKE ONE TABLET AT BEDTIME 05/18 completed Duration : 30; VACCINE_ IND: no; Not Available Not Available Not Available Spiriva Respimat 2.5 mcg/actua tion solution for inhalatio n INHALE TWO PUFFS ONCE DAILY active Not Available Not Available No t Available Liletta 20.4 mcg/24 hr (up to 8 years) 52 mg intrauter ine device BRING TO OFFICE FOR INSERTIO N 09/19 completed Duration : 1; VACCINE_ IND: no; Not Available Not Available Not Available Valeria-Dryl 25 mg tablet TAKE 1 TABLET BY MOUTH EVERY 6 HOURS NEEDED FOR ITCHING 06/27 completed Duration : 78; VACCINE_ IND: no; Not Available Not Available Not Available naloxone 4 mg/actuat ion nasal spray FOR SUSPECTE D OPIOID OVERDOSE . SPRAY 0.1mL IN ONE NOSTRIL. REPEAT IN ALTERNAT E NOSTRIL EVERY 2-3 MINUTES IF NEEDED. SEEK MEDICAL ATTENTIO N IMMEDIAT AMANDEEP EVEN IF PT RESPONDS . 06/27 completed Duration : 1; VACCINE_ IND: no; Not Available Not Available Not Available Vraylar 1.5 mg capsule TAKE 1 CAPSULE BY MOUTH EVERY DAY IN THE MORNING active Not Available Not Available No t Available Vraylar 3 mg capsule TAKE 1 CAPSULE BY MOUTH EVERY NIGHT AT BEDTIME. active Not Available Not Available No t Available Colace 2-In-1 8.6 mg-50 mg tablet 50 mg-8.6 mg Quantity : 60; Duration : 30; 2 refill(s ) 09/19 completed Frequenc y: bid; Duration : 30; VACCINE_ IND: no; SU_FULL_ NAME: Makenna naranjo; Not Available Not Available Not Available Biktarvy 50 mg-200 mg-25 mg tablet TAKE ONE TABLET EVERY NIGHT AT BEDTIME 2024 active Not Available Not Available Not Avai meño Symtuza 800 mg-150 mg-200 mg-10 mg tablet 1 tab po qd d/c prezista d/c norvir d/c tivicay 12/25 completed Duration : 30; VACCINE_ IND: no; SU_FULL_ NAME: Makenna naranjo; Not Available Not Available Not Available Afluria Quad 60 mcg (15 mcg x 4)/0.5 mL IM suspensio n quadriva lent Quantity : ; 0 refill(s ) 2018 active VACCINE_ IND: yes; VACCINE_ NAME: influenz a, injectab le, quadriva lent; SU_FULL_ NAME: Mrs. Cinthia Card; VIS_DATE : 18:43:40 .0; Not Available Not Available Not Available Afluria Quad 60 mcg (15 mcg x 4)/0.5 mL intramusc ular susp. quadriva lent Quantity : ; 0 refill(s ) 2018 active VACCINE_ IND: yes; VACCINE_ NAME: influenz a, injectab le, quadriva lent; SU_FULL_ NAME: Makenna Huntnabeel marcella; VIS_DATE : 15:02:01 .0; Not Available Not Available Not Available B Complex 1 (with folic acid) 0.4 mg tablet TAKE ONE TABLET EVERY MORNING active Not Available Not Available No t Available Afluria Quad 60 mcg (15 mcg x 4)/0.5 mL intramusc ular susp. quadriva lent Quantity : ; 0 refill(s ) 2019 active VACCINE_ IND: yes; VACCINE_ DOCUMENT _DATE: 00:00:00 ; VACCINE_ DOCUMENT _NAME: Nikolas Mancilla a: 11/21/18 (Updated annually ); VACCINE_ NAME: influenz a, injectab le, quadriva lent; SU_FULL_ NAME: Makenna Tanner naranjo; VIS_DATE : 19:09:41 .0; Not Available Not Available Not Available Wegovy 1.7 mg/0.75 mL subcutane ous pen injector INJECT 1.7 MG EVERY WEEK BY SUBCUTAN EOUS ROUTE, FOR WEIGHT LOSS. active Not Available Not Available No t Available Wegovy 1 mg/0.5 mL subcutane ous pen injector Inject 1 mg every week by subcutan eous route for 30 days, for weight loss. active Not Available Not Available No t Available Wegovy 0.25 mg/0.5 mL subcutane ous pen injector Inject 0.5 mL every week by subcutan eous route for 28 days, for weight loss. 2024 active Not Available Not Available Not Avai lable Wegovy 0.5 mg/0.5 mL subcutane ous pen injector INJECT 0.5 MG BY SUBCUTAN EOUS ROUTE FOR 28 DAYS, FOR WEIGHT LOSS. active Not Available Not Available No t Available Afluria Quad 60 mcg (15 mcg x 4)/0.5 mL intramusc ular susp. quadriva lent Quantity : ; 0 refill(s ) 2020 active VACCINE_ IND: yes; VACCINE_ DOCUMENT _DATE: 00:00:00 ; VACCINE_ DOCUMENT _NAME: Influenz a (Flu) (Inactiv ated or Recombin ant): 11/12/20; VACCINE_ NAME: influenz a, injectab le, quadriva lent; SU_FULL_ NAME: Makenna Huntnabeel naranjo; VIS_DATE : 17:53:47 .0; Not Available Not Available Not Available Flowflex COVID-19 Antigen Home Test kit Take 1 kit by [employer]. route. 2024 active Not Available Not Available Not Avai lable Paxlovid 300 mg (150 mg x 2)-100 mg tablets in a dose pack TAKE 3 TABLETS BY MOUTH TWICE A DAY FOR 5 DAYS active Not Available Not Available No t Available Paxlovid 150 mg-100 mg tablets in a dose pack (Renal Dose) 150 mg-100 mg (150 mg-100 mg Dose) Quantity : 30; Duration : 5; 0 refill(s ) 12/19 completed Frequenc y: bid; Duration : 5; VACCINE_ IND: no; SU_FULL_ NAME: Makenna naranjo; Not Available Not Available Not Available Zepbound 2.5 mg/0.5 mL subcutane ous pen injector INJECT 2.5 MG EVERY WEEK BY SUBCUTAN EOUS ROUTE, FOR WEIGHT LOSS. active Not Available Not Available No t Available Vitals Date Recorded Body height Respiratory rate Heart rate Body temperature Body mass index (BMI) Body weight Systolic blood pressure Diastolic blood pressure Provider Name and Address Organization Details Last Updated DateTime 4 172.72 cm 18 /min 99 /min 96.9 [degF] 40.7 kg/m2 508449. 76 g 120 mm[Hg] 85 mm[Hg] Tito HERNANDEZ MD [facility] 4 12:37:53 Date Recorded Body height Heart rate Respiratory rate Body temperature Body mass index (BMI) Body weight Systolic blood pressure Diastolic blood pressure Provider Name and Address Organization Details Last Updated DateTime 4 172.72 cm 97 /min 10 /min 97 [degF] 40.7 kg/m2 226825. 76 g 120 mm[Hg] 80 mm[Hg] Meaghan HERNANDEZ MD [facility] 4 10:51:38 Date Recorded Body height Body mass index (BMI) Body weight Heart rate Respiratory rate Body temperature Oxygen saturation Oxygen saturation in Arterial blood by Pulse oximetry Systolic blood pressure Diastolic blood pressure Provider Name and Address Organization Details Last Updated DateTime 4 172.72 cm 39.4 kg/m2 248309. 42 g 92 /min 10 /min 97.6 [degF] 96 % 96 % 112 mm[Hg] 78 mm[Hg] Meaghan HERNANDEZ MD [facility] 4 12:44:40 Date Recorded Body height Heart rate Respiratory rate Body temperature Body mass index (BMI) Body weight Systolic blood pressure Diastolic blood pressure Provider Name and Address Organization Details Last Updated DateTime 4 172.72 cm 97 /min 10 /min 98.8 [degF] 38.3 kg/m2 435150. 28 g 110 mm[Hg] 75 mm[Hg] Dipti HERNANDEZ MD [facility] 4 10:52:16 Date Recorded Body height Heart rate Respiratory rate Body temperature Body mass index (BMI) Body weight Oxygen saturation Oxygen saturation in Arterial blood by Pulse oximetry Systolic blood pressure Diastolic blood pressure Provider Name and Address Organization Details Last Updated DateTime 5 172.72 cm 83 /min 12 /min 97.3 [degF] 33 kg/m2 65292.5 4 g 97 % 97 % 116 mm[Hg] 74 mm[Hg] Kaylee HERNANDEZ MD [facility] 5 11:33:20 Social History None recorded. Functional Status None recorded. Mental Status None recorded. Family History Nothing Reported Notes:Anxiety, Response Prop erty: Yes; , Heart disease (CAD), Response Property: Yes; , Depression, Response Property: Yes; , Asthma, Response Property: Yes; , Arthritis, Response Property: Yes; Medical History No medical history recorded. Gynecological HistoryNo gynecological history recorded. Obstetrics History GPAL:G 0 P 0 0 0 0 Immunizations Vaccine Type Date Status Note Provider Nam e and Address Organization Details Recorded Time pneumococcal polysaccharide PPV23 2 completed Not Available [facility] 05/30/2023 06:54:09 Influenza, split virus, quadrivalent, preservative 1 completed Not Available [facility] 05/30/2023 06:54:09 Hep B, adult 2 completed Not Available [facility] 05/30/2023 06:54:09 Influenza, split virus, quadrivalent, preservative 9 completed Not Available [facility] 05/30/2023 06:54:09 Influenza, split virus, quadrivalent, preservative 9 completed Not Available [facility] 05/30/2023 06:54:09 Influenza, split virus, quadrivalent, preservative 0 completed Not Available [facility] 05/30/2023 06:54:09 Past Encounters Encounter ID Performer Location Encounter Start Date Encounter Closed Date Diagnosis/Indication Diagnosis SNOMED-CT Code Diagnosis ICD10 Code Diagnosis Note [id number] Makenna Hernandez MD Main Office [address] [place] [address] S[place] [phone] 12/18/2022 12:00:33 12/28/2022 05:29:10 Human immunodeficiency virus infection 48223340 B20 HIV. Continue Biktarvy 1 tab po qd. strict compliance reviewed to keep viral suppressio n, prevent viral transmissi on and prevent viral resistance . clinical trial options reviewed. avoid ETOH.compl iance with other meds to be reviewed with other prescriber by pt. U=U pt is aware of PreP availabili ty. reviewed.o ral GC/chlamyd ia swab obtained anal PAP on next appointmen t, to include GC/chlamyd ia swab plan of care reviewed. questions and concerns addressed. Hand wart [id number] B07. 8 Right hand wart. improved post cryosurger y and imiquimod. will come in in 2 weeks to get cryosurger y procedure [id number] Makenna Hernandez MD Main Office [address] [place] [id number] 03/07/2023 16:57:22 03/08/2023 10:29:11 Human immunodeficiency virus infection 02069760 B20 HIV. Continue Biktarvy 1 tab po qd. strict compliance reviewed to keep viral suppressio n, prevent viral transmissi on and prevent viral resistance . clinical trial options reviewed. avoid ETOH.compl iance with other meds to be reviewed with other prescriber by pt.labs ordered, except HIV VL PCR.needle exposure: HCV/HBV,RP R testing. will need to repeat testing in about a monthU=U pt is aware of PreP availabili ty. reviewed.p larisa of care reviewed. questions and concerns addressed. [id number] Makenna Hernandez MD Main Office [address] [place] [id number] 6 03/30/2023 11:01:47 03/30/2023 11:57:51 Human immunodeficiency virus infection 11375409 B20 HIV.Contin ue Biktarvy 1 tab po qd. strict compliance reviewed to keep viral suppressio n, prevent viral transmissi on and prevent viral resistance . clinical trial options reviewed. avoid ETOH.compl iance with other meds to be reviewed with other prescriber by pt.labs orderedU=U pt is aware of PreP availabili ty. reviewed.p larisa of care reviewed. questions and concerns addressed. [id number] Makenna Hernandez MD Main Office [address] [place] [address] 07/02/2023 11:01:27 07/02/2023 11:46:18 Human immunodeficiency virus infection 35707683 B20 HIV.Contin ue Biktarvy 1 tab po qd. strict compliance reviewed to keep viral suppressio n, prevent viral transmissi on and prevent viral resistance . clinical trial options reviewed w 2 drug options, infusions, monoclonal AB; switch studies reviewed as well.labs orderedU=U pt is aware of PreP availabili ty. reviewed.p larisa of care reviewed. questions and concerns addressed. Nonulcer dyspepsia 96989 07 K30 H Pylori urea breath test; sample collected in officedysp epsia. if negative, PPI could be offered Candidiasis of mouth 797 91319 B37.0 fluconazol e 1 tab po qd x 7 days; has tolerated in the past well w no allergies. rinse mounth post steroid inhaler to prevent recurrence bacterial/ fungal swab obtained. [id number] Makenna Hernandez MD Main Office [address] [place] [phone] 08/29/2023 17:51:19 10/25/2023 13:38:08 Human immunodeficiency virus infection [id number] B20 HIV.Contin ue Biktarvy 1 tab po qd. strict compliance reviewed to keep viral suppressio n, prevent viral transmissi on and prevent viral resistance .U=U pt is aware of PreP availabili ty. reviewed.p larisa of care reviewed. questions and concerns addressed. COVID-19 [id number] U07.1 START Paxlovid 1 pack bid x 5 days. to be started today. to call or ER if worsening sx such as SOb, CO, confusion, fever among other.isol ation, hand washing and mask use reviewed to minimize transmissi on Methicilli n resistant Staphylococcus aureus infection [id number] A49.02 topical antibiotic for MRSA on skin.hibic lens if needed.to call if no improvemen t or if worseningh and washingwar m compress on affected area [id number] Makenna Hernandez MD Main Office [address] [place] [address] 09/10/2023 10:29:33 09/10/2023 12:09:46 Human immunodeficiency virus infection 31080115 B20 HIV.Contin ue Biktarvy 1 tab po qd. strict compliance reviewed to keep viral suppressio n, prevent viral transmissi on and prevent viral resistance . IF candidate, she will be either on Biktarvy qd PO or Bictegravi r/[place] vir qd po.labsU=U pt is aware of PreP availabili ty. reviewed.p larisa of care reviewed.q uestions and concerns addressed. Candidiasis of mouth 797 51282 B37.0 fluconazol e 1 tab po qd x 7 days; PRN use. has tolerated in the past well w no allergies. rinse mouth post steroid inhaler to prevent recurrence Adult [facility] examination [id number] Z00.00 Body mass index 30+ - obesity [id number] Z68.41 Will discuss weight loss options on next appointmen Satya is intereted in weight losshas tried diet and exercise [id number] Makenna Hernandez MD Main Office [address] [facility] [place] [place] [address] 10/01/2023 12:07:04 10/01/2023 13:22:02 Human immunodeficiency virus infection [id number] B20 HIV.Contin ue Biktarvy 1 tab po qd. strict compliance reviewed to keep viral suppressio n, prevent viral transmissi on and prevent viral resistance . IF candidate, she will be either on Biktarvy qd PO or Bictegravi r/[place] vir qd po.labsU=U pt is aware of PreP availabili ty. reviewed.d OXYpep REVIEWEDpl an of care reviewed.q uestions and concerns addressed. Adult [facility] th examination [id number] Z00.00 HBV vaccine prescribed . Body mass index 30+ - obesity [id number] Z68.41 BMI 41.5Wegovy will be prescribed will prescribe Wegovy 0.25 mg sq qw x 4 weeks, and increase dose as tolerated. potential side effects reviewed.c orrect use reviewedco mpliance revieweddi et and exercisewi ll come in to office to get first dose.has tried diet and exercise [id number] Makenna Hernandez MD Main Office [address] [facility] [place] [address] 10/08/2023 10:13:07 10/08/2023 11:46:18 Human immunodeficiency virus infection 61564038 B20 HIV.START Clive/PBO 2 tabs po qd x2days(teo ding dose); START Clive-Bic/Bi ktarvy PBO vs clive-bic pbo/Biktar vy qd. took first dose in the office.HOl d prescribed Biktarvy that she has at home.poten tial side effect reviewed such as allergic reactions, rash. n/v/d. among othercompl iance with meds, labs and visits reviewed.U =U pt is aware of PreP availabili ty. reviewed.c ondom use.plan of care reviewed.q uestions and concerns addressed. Body mass index 30+ - obesity [id number] Z68.41 BMI 41.5awaiti ng Wegovy approval and deliverydo se will be prescribe Wegovy 0.25 mg sq qw x 4 weeks, and increase dose as tolerated. potential side effects reviewed such as panecreati tis, obstructio n, n/v/d. .correct use reviewedco mpliance revieweddi et and exerciseha s tried diet and exercise [id number] Makenna Hernandez MD Main Office [address] [place] [address] 10/24/2023 10:13:33 10/24/2023 14:57:44 Human immunodeficiency virus infection [id number] B20 HIV.contin ue Clive-Bic/Bi ktarvy PBO vs clive-bic pbo/Biktar vy qd.complia nce with meds, labs and visits reviewed.U =U pt is aware of PreP availabili ty. reviewed.c ondom use.plan of care reviewed.q uestions and concerns addressed. Body mass index 30+ - obesity [id number] Z68.41 BMI 41.5awaiti ng Wegovy delivery: med shortage; approved by insurances he will com ein to office to start first dose.Wegov y 0.25 mg sq qw x 4 weeks, and increase dose as tolerated. has not startedpot ential side effects reviewed such as panecreati tis, obstructio n, n/v/d. .correct use reviewedco mpliance revieweddi et and exerciseha s tried diet and exercise [id number] aMkenna Hernandez MD Main Office [address] [place] [address] 11/07/2023 11:12:49 11/07/2023 12:31:08 Human immunodeficiency virus infection [id number] B20 HIV.contin ue Clive-Bic/Bi ktarvy PBO vs clive-bic pbo/Biktar vy qd.complia nce with meds, labs and visits reviewed.U =U pt is aware of PreP availabili ty. reviewed.c ondom use.DOXYPE P reviewedpl an of care reviewed.q uestions and concerns addressed. Body mass index 30+ - obesity 827699982 Z68.41 BMI 41.5awaiti ng Wegovy delivery: med shortage; approved by insurances he will come in to office to start first dose.Wegov y 0.25 mg sq qw x 4 weeks, and increase dose as tolerated. has not startedpot ential side effects reviewed such as pancreatit is, obstructio n, n/v/d. .correct use reviewedco mpliance reviewedsharon et and margaret reynolds [id number] Makenna Hernandez MD Main Office [address] [place] [address] 11/27/2023 10:26:56 11/27/2023 12:13:57 Body mass index 30+ - obesity [id number] Z68.41 START Wegovy 0.25 mg sq qw. first dose administer ed today in office.she will do qw dosing for 4 weeks, and if tolerates well, will increase dose to 0.50 mg sq qw after 4 initial doses.pote ntial side effects reviewed such as n/v. vonstipati on, abd pain, pancreas, visual changes among other.to call with any concernsme chanism of action nasima olivo and exercise Human immunodeficiency virus infection 27451041 B20 HIV.contin ue Clive-Bic/Bi ktarvy PBO vs clive-bic pbo/Biktar vy qd.complia nce with meds, labs and visits reviewed.U =U pt is aware of PreP availabili ty. reviewed.c ondom use.DOXYPE P reviewedpl an of care reviewed.q uestions and concerns addressed. Folliculitis 09305919 L7 3.9 furuncles skin. hx MRSAhas tolerated DOxycyclin e wellDoxycy boyer 100mg po bid x 10 days. suppressio n tx will be offered if recurrence [id number] Makenna Hernandez MD Main Office [address] [place] [address] 12/25/2023 12:11:31 12/25/2023 12:43:57 Body mass index 30+ - obesity 069038712 Z68.41 START Wegovy 0.50 mg sq qw.she will do qw dosing for 4 weeks, and if tolerates well, will increase dose to 1.0 mg sq qw after 4 initial doses.to call with any concernshy nita olivo and exercise Human immunodeficiency virus infection 37065665 B20 HIV.contin ue Clive-Bic/Bi ktarvy PBO vs clive-bic pbo/Biktar vy qd.complia nce with meds, labs and visits reviewed.U =U pt is aware of PreP availabili ty. reviewed.c ondom use.DOXYPE P reviewedpl an of care reviewed.q uestions and concerns addressed. Candidiasi s of the esophagus 92994542 B37.81 fluconazol e qd x 14 daysmay benefit from qw suppressio n tx. she will call if interested bacterial/ fungal swab collectedl isterine or mouthwash after asthma inhaler to prevent thrush Genital warts 899870435 A63.0 Aldara tiw small amount only in affected area; avoid unaffected skin.if nonrespons e, might need cryosurger y Furuncle 612695511 L02.9 2 Hx MRSADOxycy boyer 100mg pobid x 10 daysmay benefit from mupirocin or hibiclens [id number] Makenna Hernandez MD Main Office [address] [place] [address] 02/13/2024 10:18:44 02/13/2024 11:06:33 Body mass index 30+ - obesity 350428045 Z68.41 Increase dose to 1.7 mg sq qw.she will do qw dosing for 4 weeks, and if tolerates well, will increase dose to 2.4 mg sq qw after 4 initial doses.to call with any concernshy drationdie t and exercise Human immunodeficiency virus infection 08516845 B20 HIV.contin ue Clive-Bic/Bi ktarvy PBO vs clive-bic pbo/Biktar vy qd.complia nce with meds, labs and visits reviewed.U =U pt is aware of PreP availabili ty. reviewed.c ondom use.DOXYPE P reviewedpl an of care reviewed.q uestions and concerns addressed. Candidiasi s of the esophagus 15628364 B37.81 fluconazol e qd x 14 daysmay benefit from qw suppressio n tx. she will call if interested bacterial/ fungal swab collectedl isterine or mouthwash after asthma inhaler to prevent thrushkeep dentures clean. Genital warts 501923722 A63.0 aldara renewed.R hand warts.[place] ra tiw small amount only in affected area; avoid unaffected skin. Furuncle [id number] L02.9 2 Hx MRSArefill ed.DOxycyc [place] 100[place]N [id number] Makenna Hernandez MD Main Office [address] [place] [address] 05/28/2024 17:22:55 05/29/2024 16:07:20 Body mass index 30+ - obesity [id number] Z68.41 has been with no tx, so will re-start low dose Wegovy 0.25 mg sq qwInsuranc e formulary changes, so if wegovy not approved, will try zepbound 2.5 mg sq qwIncrease dose to 1.7 mg sq qw.she will do qw dosing for 4 weeks, and if tolerates well, will increase doseto call with any concernshy drationdie t and exercise Human immunodeficiency virus infection 87598186 B20 HIV.contin ue Biktarvy 1 tab po qd.labs to include HIV VLcomplian ce with meds, labs and visits reviewed.U =U pt is aware of PreP availabili ty. reviewed.c ondom use.DOXYPE P reviewedpl an of care reviewed.q uestions and concerns addressed. Asthma [id number] J45.90 9 negative COVID19/fl uprednison e prescribed for bronchial asthma flareup.to call or ER if SOB, worsening sx, productice cough, CP or other. Acute bronchitis 4508152 2 J20.9 Azithro for 3 days todaynegat jodee COVID19 and flu Health Concerns Section Related Observation LastModified by Organization Detai ls LastModified Time None Recorded Concern Status LastModified by Organization Details LastModified Time None Recorded Advance Directives Directive None Recorded Payers Encounter Date Sequence Insurance Name Policy Number Policy Rodriguez Covered Member ID Rodriguez Member ID Guarantor Name 11/07/2023 1 [place]ICAID[place] Katie Diaz [id number] Katie Diaz 11/27/2023 1 [place] Katie Diaz [id number] Katie Shahbaz 12/25/2023 1 [place] Katie Diaz [id number] Katie Shahbaz 02/13/2024 1 [place] Katie Diaz [id number] Katie Shahbaz 05/28/2024 1 [place] Katie Diaz [id number] Katie Hartmann Notes Date Note Type Note Provider Name and Address Organization Details Recorded Time 11/07/2023 text/html HIV.she is on Clive-Bic/Biktarvy PBO vs clive-bic pbo/Biktarvy qd.tolerating wellreports compliancedenies missing doseshappy w regimenno complainsno side effectsno hospitalizations.not sexually active ; male partner incarcerated [facility]; medication shortage, so she has not been able to get at pharmacyshe will start as soon as she gets the med; it was approved by insurance; will come in to office for 1rs dose administration.BMI 41.5no new meds nor OTClipase, TSH nl; no diabetes on HgAIC Makenna Hernandez MD [address] [place] [address], [phone], SNEHAL HERNANDEZ MD [facility] 11/07/2023 12:51:41 11/27/2023 text/html HIV.she is on Clive-Bic/Biktarvy PBO vs clive-bic pbo/Biktarvy qd.tolerating wellreports compliancedenies missing dosesno hospitalizations.not sexually active ; male partner incarceratedskin furuncle recurrence. genital area; hx mRSA. has responded well to doxycyclinewill get first dose of wegovy today.weight 268no new meds nor OTClipase, TSH nl; no diabetes on [facility] Makenna Hernandez MD [address] [place] [address], [phone], SNEHAL HERNANDEZ MD [facility] 11/27/2023 13:27:55 12/25/2023 text/html HIV.she is on Clive-Bic/Biktarvy PBO vs clive-bic pbo/Biktarvy qd.tolerating wellreports compliancedenies missing dosesno hospitalizations.not sexually active ; male partner incarceratedskin furuncle recurrence again; now on abdominal skin. genital area; hx mRSA. has responded well to doxycycline; thrush due to asthma inhaler. using mouthwash;has done 4 doses of 0.25 mg s/c qw Wegovy; has lost about 10 pounds; very excited. tolerating well. will start higher dose of 0.5 mg this week for the next 4 weeksno side effects. no n/v/d. no abd pain.weight 259 also recurrence of hand warts. has 3 small ones in both hands. no new meds nor OTC11/2023 HIV VL nondetected.lipase, TSH nl; no diabetes on [facility] Makenna Hernandez MD [address] [place] [address], [phone], SNEHAL HERNANDEZ MD [facility] 12/25/2023 13:31:51 02/13/2024 text/html HIV.she is on Clive-Bic/Biktarvy PBO vs clive-bic pbo/Biktarvy qd.tolerating wellreports complianceno hospitalizations.not sexually active ; male partner incarceratedskin furuncle recurrence ; now on abdominal skin. genital area; hx mRSA. has responded well to doxycycline; needs refill She is on Czblbm8py sq qwkeeps losing weight. very happy.no n/v/d. no changes in vision.no side effects.weight 259 -->252also recurrence of hand warts. has 3 small ones in both hands. decreased size. improved on aldara. requests refill of aldara.no new meds nor OTCasthma steroid inhaler which is causing thrush; she also has dentures; recurrent. fluconazole helping, but it recurs as she is still using inhaler. Makenna Hernandez MD [address] [place] [address], [phone], SNEHAL HERNANDEZ MD [facility] 03/03/2024 23:57:13 05/28/2024 text/html HIV.Katie in on Biktarvy 1 tab po qdshe was on a study w Clive-Bic/Biktarvy PBO vs clive-bic pbo/Biktarvy qd; however, she missed visist, and was discontinued from study.she stared taking old Biktarvy bottle she had home once she ran out of study meds. she thre away empty bottles.she missed appointment mark to social issues: her kid was removed from the house by a family member, so she got very sad, depressed and upset; she has been trying to get her kid back; also having some problems with ex who has been living with her, and is creating friction between them. she also ran out of wegovy, and would like to re-start.she has been losing weight. asthma. has been sick for 3 days or so. wheezing, cough. no CP. using inhaler, but wheezing. productive cough. no fever. Makenna Hernandez MD [address] [place] [address], [phone], SNEHAL HERNANDEZ MD [facility] 06/21/2024 22:50:14 OBGyn Episode No OBEpisode recorded.
--- OUTSIDE RECORDS SUMMARY | 2024-07-24 14:38 | XMS_ITS | Clinical Summary ---
Author Organization [facility] Address [address] [place] [address] Phone Care Team Providers Care Project Mgr Name Role Phone Aparna Jiménez MD Primary Care Provider [phone] Allergies Active Allergy Reactions Criticality Noted Date Comments Sulfamethoxazole-Trimethoprim Unknown 2023 Hydromorphone Itching 02/19/2024 Morphine Itching 02/19/2024 Medications ammonium lactate (LAC-HYDRIN) 12 % lotion Apply to soles of feet daily. At night wear socks to bed 06/21/19 24 Active ciclopirox (PENLAC) 8 % solution Apply daily to nails clean medication residue off of nail plate every 3 days with rubbing alcohol 06/21/19 24 Active Spiriva Respimat 2.5 mcg/actuation inhalation sprayIndications :Severe persistent asthma, uncomplicated (CMS/HCC V28),Nicotine dependence, cigarettes, uncomplicated INHALE TWO PUFFS ONCE DAILY 4 g 11 05/08/19 25 Active Ventolin HFA 90 mcg/actuation inhaler INHALE TWO PUFFS BY MOUTH EVERY FOUR HOURS NEEDED FOR WHEEZING 18 g 2 05/19/19 25 Active bictegravir-emtr icitabine-tenofo vir alafenamide (BIKTARVY) 50-200-25 mg per tablet Take 1 tablet by mouth at bedtime. Active venlafaxine XR (EFFEXOR-XR) 150 mg 24 hr capsule Take 1 capsule (150 mg total) by mouth 1 (one) time each day. Do not crush or chew. Active lamoTRIgine (LaMICtal) 200 mg tablet Take 1 tablet (200 mg total) by mouth 2 (two) times a day. Active clonazePAM (KlonoPIN) 1 mg tablet Take 1 tablet (1 mg total) by mouth 3 (three) times a day if needed for anxiety. Max Daily Amount: 3 mg Active zolpidem (AMBIEN) 10 mg tablet Take 1 tablet (10 mg total) by mouth at bedtime as needed for sleep. Max Daily Amount: 10 mg Active cariprazine (VRAYLAR) 3 mg capsule Take 1 capsule (3 mg total) by mouth at bedtime. Active buprenorphine-na loxone (SUBOXONE) 8-[address] tablet [address] 3 tablets under the tongue 1 (one) time each day. After the medication is completely dissolved, take a large sip of water, swish it around teeth and gums, and swallow. Wait at least 1 hour before brushing teeth to avoid damage to your teeth. Max Daily Amount: 3 tablets Active montelukast (SINGULAIR) 10 mg tablet Take 1 tablet (10 mg total) by mouth at bedtime. Active fluticasone-salm eterol (ADVAIR DISKUS) 250-50 mcg/dose diskus inhaler Inhale 1 puff by mouth 2 (two) times a day. Rinse mouth with water after use to reduce aftertaste and incidence of candidiasis. Do not swallow. Active famotidine (PEPCID) 20 mg tablet Take 1 tablet (20 mg total) by mouth 2 (two) times a day. Active B complex tablet Take 1 tablet by mouth 1 (one) time each day. Active valACYclovir (VALTREX) 500 mg tablet Take 1 tablet (500 mg total) by mouth 1 (one) time each day. Hs medication Active tirzepatide, weight loss, (Zepbound) 2.5 mg/0.5 mL solution Inject 2.5 mg under the skin every 7 (seven) days. 025 Discontinued Encounters Date Type Department Care Team Description 07/02/2024 6:52 PM EDT - 07/03/2024 3:14 PM EDT Emergency Emergency [address] [place] [id number] Rolan Rouse MD Self-mutilation (Primary Dx) Discharge Disposition: Another Health Care Institution Not Defined 05/22/2024 8:55 PM EST - 05/22/2024 9:08 PM EST Emergency Emergency [address] [place] [address] Discharge Disposition: Home or Self Care from Last 3 Months Immunizations Name Administration Dates Next Due TOSHA/Nathalie SARS-CoV-2 COVID -19, vector-nr, rS-Ad26, preservative free 09/27/2020 Pfizer SARS-CoV-2 COVID-19, mRNA, LNP-S, preservative free 06/26/2001 Medical History Medical History Date Comments Asthma HIV (human immunodeficiency virus infection) (CM S/HCC V24, CMS/HCC V28) Anxiety Social History Tobacco Use Types Packs/Day Years Used Date Smoking Tobacco: Every Day Smokeless Tobacco: Never Alcohol Use Standard Drinks/Week Comments Not Currently 0 (1 standard drink = 0.6 oz pur e alcohol) Comments Unknown Sex and Gender Information Value Date Recorded Sex Assigned at Female 02/19/2024 9:44 AM EST Legal Sex Female 3:32 PM EST Gender Identity Female 02/19/2024 9:44 AM EST Sexual Orientation Choose not to disclose 2023 9:44 AM EST Obstetrics History Last Filed Vital Signs Vital Sign Reading Time Taken Comments Blood Pressure 105/65 07/03/2024 2:41 PM EDT Pulse 78 07/03/2024 2:41 PM EDT Temperature 36.4 ??C (97.6 ??F) 07/03/2024 2:41 PM ED T Respiratory Rate 16 07/03/2024 2:41 PM EDT Oxygen Saturation 100% 07/03/2024 2:41 PM EDT Inhaled Oxygen Concentration - - Weight 113 kg (250 lb) 07/02/2024 7:09 PM EDT Height 170.2 cm (5' 7 ) 07/02/2024 7:09 PM EDT Body Mass Index 39.16 07/02/2024 7:09 PM EDT Plan of Treatment Health Maintenance Due Date Last Done Comments Breast Cancer Screening 1976 MMR Vaccines (1 of 2 - Risk 2-dose series) 1994 Cervical Cancer Screening: Pap Smear 1997 Cholesterol Screening (Lipid Panel) 03/19/2022 Depression Screening 03/19/2022 Social Influencers of Health Screening 03/19/2022 Meningococcal ACWY Vaccine (3 - Risk 2-dose series) 05/03/2022 05/03/2017, 11/16/2016 COVID-19 Vaccine ( season) 2024 03/05/2024, 02/21/2022, 04/06/2021, Additional history exists DTaP,Tdap,and Td Vaccines (8 - Td or Tdap) 07/22/2025 07/23/2015, 12/12/2013, 03/11/2012, Additional history exists Colorectal Cancer Screening: FIT-DNA (Cologuard) 05/04/2026 05/04/2023 Pneumococcal Vaccine: Pediatrics (0 to 5 Years) and At-Risk Patients (6 to 64 Years) (4 of 4 - PCV20 or PCV21) 12/20/2026 12/20/2021, 01/08/2014, 01/18/2012, Additional history exists Hepatitis A Vaccines Completed 03/23/2005, 03/31/20 Hepatitis B Vaccines Completed 10/04/2021, 08/08/2012, 03/31/2004, Additional history exists Influenza Vaccine Completed 03/05/2024, , 02/12/2020, Additional history exists Hepatitis C Screening Completed 05/29/2024 HIB Vaccines Aged Out No longer eligi ble based on patient's age to complete this topic HPV Vaccines Aged Out No longer eligi ble based on patient's age to complete this topic IPV Vaccines Aged Out No longer eligi ble based on patient's age to complete this topic Meningococcal B Vaccine Aged Out No l onger eligible based on patient's age to complete this topic RSV Immunization Patients Under 20 months Aged Out No longer eligible based on patient's age to complete this topic Varicella Vaccines Aged Out No longer eligible based on patient's age to complete this topic Procedures Procedure Name Priority Date/Time Associated Diagnosis Comments METHADONE SCREEN, URINE STAT 07/03/19 7:57 PM EDT PHENCYCLIDINE, URINE STAT 07/02/2024 7:57 PM EDT BUPRENORPHINE SCREEN, URINE STAT 07/02/2024 7:57 PM EDT DRUG ABUSE SCREEN 8A PANEL, URINE STAT 07/02/2024 7:57 PM EDT CBC WITH AUTO DIFFERENTIAL STAT 07/02/2024 7:45 PM EDT SALICYLATE LEVEL STAT 07/02/2024 7:45 PM EDT ACETAMINOPHEN LEVEL STAT 07/02/2024 7 :45 PM EDT ETHANOL STAT 07/02/2024 7:45 PM EDT COMPREHENSIVE METABOLIC PANEL STAT 07/02/2024 7:45 PM EDT CBC AND DIFFERENTIAL STAT 07/02/2024 7:45 PM EDT MANUAL DIFFERENTIAL - SYSMEX WAM Routine 05/29/2024 2:05 PM EST Human immunodeficiency virus (HIV) disease (CMS/HCC V24, CMS/HCC V28) CBC WITH AUTO DIFFERENTIAL Routine 05/29/2024 2:05 PM EST Human immunodeficiency virus (HIV) disease (CMS/HCC V24, CMS/HCC V28) HIV 1 MOLECULAR STUDY QUANTITATIVE Routine 05/29/2024 2:05 PM EST Human immunodeficiency virus (HIV) disease (CMS/HCC V24, CMS/HCC V28) LYMPHOCYTE T-CELL PANEL Routine 05/29/19 2:05 PM EST Human immunodeficiency virus (HIV) disease (CMS/HCC V24, CMS/HCC V28) TREPONEMA PALLIDUM ANTIBODY WITH REFLEX TO RPR AND PARTICLE AGGLUTINATION Routine 05/29/2024 2:05 PM EST Human immunodeficiency virus (HIV) disease (CMS/HCC V24, CMS/HCC V28) HEPATITIS C VIRUS QUANTITATIVE PCR Routine 05/29/2024 2:05 PM EST Human immunodeficiency virus (HIV) disease (CMS/HCC V24, CMS/HCC V28) CREATININE, SERUM Routine 05/29/2024 2:0 5 PM EST Human immunodeficiency virus (HIV) disease ([facility] V24, [facility] V28) ASPARTATE AMINOTRANSFERASE Routine 05/29/2024 2:05 PM EST Human immunodeficiency virus (HIV) disease ([facility] V24, [facility] V28) ALANINE AMINOTRANSFERASE Routine 05/29/2024 2:05 PM EST Human immunodeficiency virus (HIV) disease ([facility] V24, [facility] V28) ELECTROLYTE PANEL Routine 05/29/2024 2:0 5 PM EST Human immunodeficiency virus (HIV) disease ([facility] V24, [facility] V28) CBC AND DIFFERENTIAL Routine 05/29/2024 2:05 PM EST Human immunodeficiency virus (HIV) disease ([facility] V24, [facility] V28) CHLAMYDIA TRACHOMATIS AND NEISSERIA GONORRHOEAE PCR Routine 05/29/2024 2:05 PM EST Human immunodeficiency virus (HIV) disease ([facility] V24, [facility] V28) from Last 3 Months Results * (ABNORMAL) Drug abuse screen 8a panel, urine (07/02/2024 7:57 PM EDT) Amphetamine Screen, Ur Negative Negative LAB CHEMISTRY METHOD 5 9:17 PM T [facility] Comment:Certain OTC medicati ons containing ephedrine, phenylephrine, pseudoephedrine and phenylpropanolamine can cause false positive results. Barbiturate Screen, Ur Negative Negative LAB CHEMISTRY METHOD 5 9:17 PM EDT [facility] Benzodiazepine Screen, Ur Positive(A ) Negative [facility] Cocaine Screen, Ur Negative Negative LAB CHEMISTRY METHOD 5 9:17 PM EDT [facility] Opiate Screen, Ur Negative Negative LAB CHEMISTRY METHOD 5 9:17 PM EDT [facility] Cannabinoid (THC) Screen, Ur Positive(A ) Negative LAB CHEMISTRY METHOD 9:17 PM EDT [facility] Comment:Specimens from patie nts taking pantoprazole sodium (Protonix) have been shown to produce false positive results. Oxycodone Screen, Ur Negative Negative LAB CHEMISTRY METHOD 5 9:17 PM EDT [facility] Fentanyl, Ur Negative Negative LAB CHEMISTRY METHOD 5 9:17 PM EDT [facility] Urine Urine specimen obtained by clean catch procedure / Unknown Non-blood Collection / Unknown 07/02/2024 7:57 PM EDT 07/02/2024 8:21 PM EDT Narrative [facility] - 07/02/2024 9:17 PM EDT Assay cutoffs: Amphetamines ? 1000 ng/mL Barbiturates ?200 ng/mL Benzodiazepines ?? 200 ng/mL Cocaine ? 300 ng/mL Fentanyl ?1 ng/mL Opiates ? 300 ng/mL Oxycodone ? 100 ng/mL THC ?50 ng/mL Semi-quantitative assay for screening purposes only. Unconfirmed screening result should not be used for non-medical purposes. *ALTERNATE METHOD CONFIRMATION DONE UPON REQUEST ONLY* us Rolan Rouse MD LAB URINE ORDERABLES Final Resu lt [facility] [address] [place] [address], * Buprenorphine screen, urine (07/02/2024 7:57 PM EDT) Buprenorphine Screen Urine Negative Negative LAB CHEMISTRY METHOD 07/02/2024 9:17 PM EDT [facility] Urine Urine specimen obtained by clean catch procedure / Unknown Non-blood Collection / Unknown 07/02/2024 7:57 PM EDT 07/02/2024 8:21 PM EDT Narrative [facility] - 07/02/2024 9:17 PM EDT Assay cutoff 5 ng/mL Semi-quantitative assay for screening purposes only. Unconfirmed screening result should not be used for non-medical purposes. *ALTERNATE METHOD CONFIRMATION DONE UPON REQUEST ONLY* Rolan Rouse MD LAB URINE ORDERABLES Final Resu lt Performing Organization Address [facility] de Phone Number [facility] [address] [place] [address], [place] [phone] * Methadone, urine (07/02/2024 7:57 PM EDT) Methadone Screen, Urine Negative Negative LAB CHEMISTRY METHOD 07/02/2024 9:17 PM EDT [facility] Comment: Assay cutoff 300 ng/mL Semi-quantitative assay for screening purposes only. Unconfirmed screening result should not be used for non-medical purposes. *ALTERNATE METHOD CONFIRMATION DONE UPON REQUEST ONLY* Urine Urine specimen obtained by clean catch procedure / Unknown Non-blood Collection / Unknown 07/02/2024 7:57 PM EDT 07/02/2024 8:21 PM EDT Rolan Rouse MD LAB URINE ORDERABLES Final Resu lt Performing Organization Address [facility]/ZIP Co de Phone Number [facility] [address] [place] [address], [place] [phone] * Phencyclidine, urine (07/02/2024 7:57 PM EDT) PCP Scrn, Ur Negative Negative LAB CHEMISTRY METHOD 07/02/2024 9:17 PM EDT [facility] Comment: Assay cutoff 25 ng/mL Semi-quantitative assay for screening purposes only. Unconfirmed screening result should not be used for non-medical purposes. *ALTERNATE METHOD CONFIRMATION DONE UPON REQUEST ONLY* Urine Urine specimen obtained by clean catch procedure / Unknown Non-blood Collection / Unknown 07/02/2024 7:57 PM EDT 07/02/2024 8:21 PM EDT Rolan Rouse MD LAB URINE ORDERABLES Final Resu lt [facility] [address] [place] [address], [place] [phone] * (ABNORMAL) CBC auto differential (07/02/2024 7:45 PM EDT) Only the most recent of2 resultswithin the time period is included. WBC 11.4(H) 4.8 - 10.8 K/mcL LAB HEMETOLOGY METHOD 07/02/2024 8:25 PM EDT [facility] RBC 3.80 3.80 - 4.80 M/mcL LAB HEMETOLOGY METHOD 07/02/2024 8:25 PM EDT [facility] Hemoglobin 12.2 11.5 - 16.0 g/dL LAB HEMETOLOGY METHOD 07/02/2024 8:25 PM EDT [facility] Hematocrit 37.9 35.0 - 47.0 % LAB HEMETOLOGY METHOD 07/02/2024 8:25 PM EDT [facility] MCV 99.7(H) 79.0 - 98.0 FL LAB HEMETOLOGY METHOD 07/02/2024 8:25 PM EDT [facility] MCH 32.1(H) 27.0 - 32.0 pcg LAB HEMETOLOGY METHOD 07/02/2024 8:25 PM EDT [facility] MCHC 32.2 32.0 - 37.0 g/dL LAB HEMETOLOGY METHOD 07/02/2024 8:25 PM [facility] RDW 15.8(H) 11.0 - 15.0 % LAB HEMETOLOGY METHOD 07/02/2024 8:25 PM [facility] Platelets 236 130 - 400 K/[facility] LAB HEMETOLOGY METHOD 07/02/2024 8:25 PM [facility] MPV 9.8 7.0 - 11.0 FL LAB HEMETOLOGY METHOD 07/02/2024 8:25 PM [facility] NRBC 0.0 <1.0 % LAB HEMETOLOGY METHOD 07/02/2024 8:25 PM [facility] NRBC Absolute 0.00 <0.10 K/[facility] LAB HEMETOLOGY METHOD 07/02/2024 8:25 PM [facility] Neutrophils Relative 52.7 % LAB HEMETOLOGY METHOD 07/02/2024 8:25 PM [facility] Lymphocytes Relative 36.0 % LAB HEMETOLOGY METHOD 07/02/2024 8:25 PM [facility] Monocytes Relative 8.0 % LAB HEMETOLOGY METHOD 07/02/2024 8:25 PM [facility] Eosinophils Relative 2.6 % LAB HEMETOLOGY METHOD 07/02/2024 8:25 PM [facility] Basophils Relative 0.3 % LAB HEMETOLOGY METHOD 07/02/2024 8:25 PM [facility] Immature Granulocytes Relative 0.4 % LAB HEMETOLOGY METHOD 07/02/2024 8:25 PM [facility] Neutrophils Absolute 6.02 1.50 - 7.00 K/[facility] LAB HEMETOLOGY METHOD 07/02/2024 8:25 PM [facility] Lymphocytes Absolute 4.10 1.00 - 5.00 K/[facility] LAB HEMETOLOGY METHOD 07/02/2024 8:25 PM EDT [facility] Monocytes Absolute 0.91 0.20 - 1.00 K/mcL LAB HEMETOLOGY METHOD 07/02/2024 8:25 PM EDT [facility] Eosinophils Absolute 0.30 0.00 - 0.50 K/mcL LAB HEMETOLOGY METHOD 07/02/2024 8:25 PM EDT [facility] Basophils Absolute 0.03 0.00 - 0.20 K/[facility] LAB HEMETOLOGY METHOD 07/02/2024 8:25 PM EDT [facility] Immature Granulocytes Absolute 0.04(H) 0.00 - 0.03 K/mcL LAB HEMETOLOGY METHOD 07/02/2024 8:25 PM EDT [facility] Blood Venous blood specimen / Unknown Venipuncture / Unknown 07/02/2024 7:45 PM EDT 07/02/2024 8:21 PM EDT Rolan Rouse MD LAB BLOOD ORDERABLES Final Resu lt [facility] [address] [place] [address], [place] [phone] * Ethanol (07/02/2024 7:45 PM EDT) Ethanol Level 6 0 - 10 mg/dL LAB CHEMISTRY METHOD 07/02/2024 9:00 PM EDT [facility] Blood Venous blood specimen / Unknown Venipuncture / Unknown 07/02/2024 7:45 PM EDT 07/02/2024 8:21 PM EDT us Rolan Rouse MD LAB BLOOD ORDERABLES Final Resu lt [facility] [address] [place] [address], [place] [phone] * (ABNORMAL) Acetaminophen level (07/02/2024 7:45 PM EDT) Acetaminophen Level 2.1(L) 10.0 - 30.0 mcg/mL LAB CHEMISTRY METHOD 07/02/2024 9:00 PM EDT [facility] Blood Venous blood specimen / Unknown Venipuncture / Unknown 07/02/2024 7:45 PM EDT 07/02/2024 8:21 PM EDT us Rolan Rouse MD LAB BLOOD ORDERABLES Final Resu lt Performing Organization Address [facility]/ZIP Co de Phone Number [facility] [address] [place] [address], [place] [phone] * (ABNORMAL) Salicylate level (07/02/2024 7:45 PM EDT) Salicylate Level <1.7(L) 2.0 - 29.0 mg/dL LAB CHEMISTRY METHOD 07/02/2024 9:00 PM EDT [facility] Blood Venous blood specimen / Unknown Venipuncture / Unknown 07/02/2024 7:45 PM EDT 07/02/2024 8:21 PM EDT us Rolan Rouse MD LAB BLOOD ORDERABLES Final Resu lt Performing Organization Address City/[facility]/ZIP Co de Phone Number [facility] [address] [place] [address], [place] [phone] * (ABNORMAL) Comprehensive metabolic panel (07/02/2024 7:45 PM EDT) Sodium 137 133 - 145 mmol/L LAB CHEMISTRY METHOD 07/02/2024 9:07 PM EDT [facility] Potassium 4.0 3.5 - 5.5 mmol/L LAB CHEMISTRY METHOD 07/02/2024 9:07 PM EDT [facility] Chloride 107 96 - 110 mmol/L LAB CHEMISTRY METHOD 07/02/2024 9:07 PM [facility] CO2 28 21 - 32 mmol/L LAB CHEMISTRY METHOD 07/02/2024 9:07 PM [facility] Anion Gap 2(L) 3 - 11 LAB CHEMISTRY METHOD 07/02/2024 9:07 PM [facility] Glucose 87 70 - 100 mg/dL LAB CHEMISTRY METHOD 07/02/2024 9:07 PM [facility] BUN 10 5 - 25 mg/dL LAB CHEMISTRY METHOD 07/02/2024 9:07 PM [facility] Creatinine 0.67 0.50 - 1.10 mg/dL LAB CHEMISTRY METHOD 07/02/2024 9:07 PM [facility] eGFR 108 >=60 mL/min/1. 73m2 LAB CHEMISTRY METHOD 07/02/2024 9:07 PM [facility] Comment:Calculation based on the??Chronic Kidney Disease Epidemiology Collaboration (CKD-EPI) equation refit??without adjustment for race. BUN/Creatinine Ratio 14.9 LAB CHEMISTRY METHOD 07/02/2024 9:07 PM [facility] Calcium 8.5 8.5 - 10.5 mg/dL LAB CHEMISTRY METHOD 07/02/2024 9:07 PM [facility] AST (SGOT) 10 10 - 42 unit/L LAB CHEMISTRY METHOD 07/02/2024 9:07 PM [facility] ALT (SGPT) 16 10 - 60 unit/L LAB CHEMISTRY METHOD 07/02/2024 9:07 PM [facility] Alkaline Phosphatase 67 42 - 121 unit/L LAB CHEMISTRY METHOD 07/02/2024 9:07 PM [facility] Total Protein 6.2 6.0 - 8.0 g/dL LAB CHEMISTRY METHOD 07/02/2024 9:07 PM [facility] Albumin 3.5 3.2 - 5.0 g/dL LAB CHEMISTRY METHOD 07/02/2024 9:07 PM EDT [facility] Total Bilirubin 0.3 0.0 - 1.4 mg/dL LAB CHEMISTRY METHOD 07/02/2024 9:07 PM EDT [facility] Blood Venous blood specimen / Unknown Venipuncture / Unknown 07/02/2024 7:45 PM EDT 07/02/2024 8:21 PM EDT us Rolan Rouse MD LAB BLOOD ORDERABLES Final Resu lt Performing Organization Address City/[facility]/ZIP Co de Phone Number [facility] [address] [place] [address], [place] [phone] * Treponema pallidum antibody with reflex to RPR and particle agglutination (05/29/2024 2:05 PM EST) T. Pallidum Antibodies Negative Negative LAB CHEMISTRY METHOD 05/29/2024 4:06 PM EST [facility] Blood Venous blood specimen / Unknown Venipuncture / Unknown 05/29/2024 2:05 PM EST 05/29/2024 2:56 PM EST us Makenna Fernandez MD LAB BLOOD ORDERABLES Elizabeth l Result Performing Organization Address City/[facility]/ZIP Co de Phone Number [facility] [address] [place] [address], [place] [phone] * (ABNORMAL) Manual differential (05/29/2024 2:05 PM EST) Neutrophils % 49.0 % LAB HEMETOLOGY METHOD 05/29/2024 4:[address] [facility] Lymphocytes % 37.0 % LAB HEMETOLOGY METHOD 05/29/2024 4:[address] [facility] Reactive Lymphocyte 8.00 % LAB HEMETOLOGY METHOD 05/29/2024 4:[address] [facility] Monocytes % 5.0 % LAB HEMETOLOGY METHOD 05/29/2024 4:[address] [facility] Eosinophils % 1.0 % LAB HEMETOLOGY METHOD 05/29/2024 4:[address] [facility] Basophils % 1.0 % LAB HEMETOLOGY METHOD 05/29/2024 4:[address] [facility] Neutrophils Absolute Manual 3.82 1.50 - 7.00 K/mcL LAB HEMETOLOGY METHOD 05/29/2024 4:[address] [facility] Lymphocytes Absolute 2.89 1.00 - 5.00 K/mcL LAB HEMETOLOGY METHOD 05/29/2024 4:[address] [facility] Reactive Lymph Abs Manual 0.62(H) 0.00 - 0.00 lym LAB HEMETOLOGY METHOD 05/29/2024 4:[address] [facility] Monocytes Absolute Manual 0.39 0.20 - 1.00 K/mcL LAB HEMETOLOGY METHOD 05/29/2024 4:[address] [facility] Eosinophils Absolute Manual 0.08 0.00 - 0.50 K/mcL LAB HEMETOLOGY METHOD 05/29/2024 4:[address] [facility] Basophils Absolute Manual 0.08 0.00 - 0.20 K/mcL LAB HEMETOLOGY METHOD 05/29/2024 4:[address] [facility] Rbc Morphology Consistent with indices Consistent with indices, Normal for [place] LAB HEMETOLOGY METHOD 05/29/2024 4:[address] [facility] Platelet Morphology - WAM See Note(A) Normal LAB HEMETOLOGY METHOD 05/29/2024 4:[address] [facility] Comment:PLT: Normal Blood Venous blood specimen / Unknown Venipuncture / Unknown 05/29/2024 2:05 PM EST 05/29/2024 2:55 PM EST us Makenna Fernandez MD LAB BLOOD ORDERABLES Elizabeth l Result Performing Organization Address City/[facility]/ZIP Co de Phone Number [facility] [address] [place] [address], [place] [phone] * Hepatitis C virus quantitative molecular study (05/29/2024 2:05 PM EST) [facility] HCV Qual Interp Not Detected Not Detected LAB MOLECULAR DIAGNOSTICS METHOD 05/30/2024 8:16 AM EST [facility] Comment:HCV RNA not detected , unable to report quantitative results. Blood Venous blood specimen / Unknown Venipuncture / Unknown 05/29/2024 2:05 PM EST 05/29/2024 2:56 PM EST us Makenna Fernandez MD LAB BLOOD ORDERABLES Elizabeth l Result Performing Organization Address [facility]/ZIP Co de Phone Number [facility] [address] [place] [address], [place] [phone] * Chlamydia trachomatis and Neisseria gonorrhoeae molecular study (05/29/2024 2:05 PM EST) [facility] Neisseria gonorrhoeae PCR Negative Negative LAB MOLECULAR DIAGNOSTICS METHOD 05/30/2024 9:[address] [facility] Chlamydia trachomatis PCR Negative Negative LAB MOLECULAR DIAGNOSTICS METHOD 05/30/2024 9:[address] [facility] Urine Urine specimen obtained by clean catch procedure / Unknown Non-blood Collection / Unknown 05/29/2024 2:05 PM EST 05/29/2024 2:52 PM EST us Makenna Fernandez MD LAB MICROBIOLOGY - GENERA L ORDERABLES Final Result Performing Organization Address City/[facility]/ZIP Co de Phone Number [facility] [address] [place] [address], [place] [phone] * (ABNORMAL) Lymphocyte T-cell panel (05/29/2024 2:05 PM EST) CD4 1,007 426 - 1,776 cells/mcL 05/30/2024 1:38 PM EST [facility] CD8 1,080(H) 161 - 838 cells/mcL 05/30/2024 1:38 PM EST [facility] CD4/CD8 Ratio 0.93 0.90 - 4.90 05/30/2024 1:38 PM EST [facility] CD4 % 35 33 - 64 % 05/30/2024 1:38 PM EST [facility] [facility] CD8 % 37 10 - 39 % 05/30/2024 1:38 PM EST [facility] Blood Venous blood specimen / Unknown Venipuncture / Unknown 05/29/2024 2:05 PM EST 05/29/2024 2:55 PM EST Makenna Fernandez MD LAB MOLECULAR DIAGNOSTICS ORDERABLES Final Result [facility] [address] [place] [address], [place] [phone] * HIV 1 molecular study quantitative (05/29/2024 2:05 PM EST) Pathologist [facility] HIV-1 RNA Interpretation Not Detected Not Detected LAB MOLECULAR DIAGNOSTICS METHOD 05/30/2024 8:16 AM EST [facility] Comment:HIV RNA not detected , unable to report quantitative results. Blood Venous blood specimen / Unknown Venipuncture / Unknown 05/29/2024 2:05 PM EST 05/29/2024 2:56 PM EST Makenna Fernandez MD LAB BLOOD ORDERABLES Elizabeth l Result [facility] [address] [place] [address], [place] [phone] * Creatinine (05/29/2024 2:05 PM EST) Creatinine 0.75 0.50 - 1.10 mg/dL LAB CHEMISTRY METHOD 05/29/2024 3:53 PM EST [facility] eGFR 98 >=60 mL/min/1. 73m2 LAB CHEMISTRY METHOD 05/29/2024 3:53 PM EST [facility] Comment:Calculation based on the??Chronic Kidney Disease Epidemiology Collaboration (CKD-EPI) equation refit??without adjustment for race. Blood Venous blood specimen / Unknown Venipuncture / Unknown 05/29/2024 2:05 PM EST 05/29/2024 2:56 PM EST Makenna Fernandez MD LAB BLOOD ORDERABLES Elizabeth l Result Performing Organization Address City/[facility]/ZIP Co de Phone Number [facility] [address] [place] [address], * Alanine aminotransferase (05/29/2024 2:05 PM EST) ALT (SGPT) 22 10 - 60 unit/L LAB CHEMISTRY METHOD 05/29/2024 3:53 PM EST [facility] Blood Venous blood specimen / Unknown Venipuncture / Unknown 05/29/2024 2:05 PM EST 05/29/2024 2:56 PM EST Makenna Fernandez MD LAB BLOOD ORDERABLES Elizabeth l Result [facility] [address] [place] [address], * Aspartate aminotransferase (05/29/2024 2:05 PM EST) AST (SGOT) 14 10 - 42 unit/L LAB CHEMISTRY METHOD 05/29/2024 3:53 PM EST [facility] Blood Venous blood specimen / Unknown Venipuncture / Unknown 05/29/2024 2:05 PM EST 05/29/2024 2:56 PM EST Makenna Fernandez MD LAB BLOOD ORDERABLES Elizabeth l Result Performing Organization Address [facility]/ZIP Co de Phone Number [facility] [address] [place] [address], * Electrolyte panel (05/29/2024 2:05 PM EST) Pathologist [facility] Sodium 144 133 - 145 mmol/L LAB CHEMISTRY METHOD 05/29/2024 3:53 PM EST [facility] Potassium 4.4 3.5 - 5.5 mmol/L LAB CHEMISTRY METHOD 05/29/2024 3:53 PM EST [facility] Chloride 109 96 - 110 mmol/L LAB CHEMISTRY METHOD 05/29/2024 3:53 PM EST [facility] CO2 28 21 - 32 mmol/L LAB CHEMISTRY METHOD 05/29/2024 3:53 PM EST [facility] Anion Gap 7 3 - 11 LAB CHEMISTRY METHOD 05/29/2024 3:53 PM EST [facility] Blood Venous blood specimen / Unknown Venipuncture / Unknown 05/29/2024 2:05 PM EST 05/29/2024 2:56 PM EST Makenna Fernandez MD LAB BLOOD ORDERABLES Elizabeth l Result [facility] [address] [place] [address], from Last 3 Months Insurance MEDICAID - [place] Care Teams Project Mgr Relationship Specialty Start Date End Date Aparna Jiménez MD [address] [place] [address] PCP - General Internal Medicine 10/14/21
== END 2024-07-24 11:45 | disposition home or self-care (01) ==
LOC: HO.HHCX 11:44
PROVIDERS: Visit Provider Family Medicine
DX: K59.09 Other constipation (principal)
CPT/HCPCS: 74018

== ENCOUNTER → 2024-07-24 11:45 | Outpatient (BNV) | payer MEDICAID, SELFPAY | PROVIDERS: Visit Provider Radiology Diagnostic Radiology | DX: K59.00 Constipation, unspecified (principal); R16.0 Hepatomegaly, not elsewhere classified; Z90.49 Acquired absence of other specified parts of digestive tract | CPT/HCPCS: 74018 ==

== ENCOUNTER 2025-01-13 15:33 | Outpatient (REF) | payer MEDICAID, SELFPAY ==
--- OUTSIDE RECORDS SUMMARY | 2025-01-13 18:40 | XMS_ITS | Encounter Summary ---
Author Organization [facility] Address [id number] [place] [id number] Care Team Providers Care [employer] Labor Supervisor Name Role Phone Aparna Jiménez MD Primary Care Provider [phone] Encounter Details Date Type Department Care Team (Latest Contact Info) Description 01/06/2025 Lab Requisition [facility] - Main Lab [address] [facility] [place] [address] Makenna Fernandez MD [address] [place] [address] [phone] Human immunodeficiency virus (HIV) disease ([facility] V24, [facility] V28); Other specified noninflammatory disorders of vagina Social History Tobacco Use Types Packs/Day Years Used Date Smoking Tobacco: Every Day Smokeless Tobacco: Never Alcohol Use Standard Drinks/Week Comments Not Currently 0 (1 standard drink = 0.6 oz pur e alcohol) Interpersonal Safety Answer Date Record ed Physical Abuse Unrecognized value 01/04/2025 Verbal Abuse Unrecognized value 01/04/2025 Comments Unknown Sex and Gender Information Value Date Recorded Sex Assigned at Female 02/19/2024 9:44 AM EST Legal Sex Female 3:32 PM EST Gender Identity Female 02/19/2024 9:44 AM EST Sexual Orientation Choose not to disclose 2023 9:44 AM EST documented as of this encounter Functional Status * Are you deaf or do you have serious difficulty hearing? Answer Date of Assessment Author No 01/04/2025 1:01 PM EDT Sandie Noel RN * Are you blind or do you have serious difficulty seeing, even when wearing glasses? Answer Date of Assessment Author No 01/04/2025 1:01 PM EDT Sandie Noel RN * Do you have serious difficulty walking or climbing stairs? Answer Date of Assessment Author Yes 01/04/2025 1:01 PM EDT Sandie Noel RN * Do you have serious difficulty dressing or bathing? Answer Date of Assessment Author No 01/04/2025 1:01 PM EDT Sandie Noel RN * Because of a physical, mental, or emotional condition, do you have serious difficulty doing errandsalone such as visiting the doctor? Answer Date of Assessment Author Yes 01/04/2025 1:01 PM EDT Sandie Noel RN documented as of this encounter Mental Status * Because of a physical, mental, or emotional condition, do you have serious difficulty concentrating, remembering, or making decisions? (5 years old or older) Answer Entry Date Author No 01/04/2025 1:01 PM EDT Sandie Noel RN documented in this encounter Plan of Treatment Not on file documented as of this encounter Procedures Procedure Name Priority Date/Time Associated Diagnosis Comments URINALYSIS WITH REFLEX MICROSCOPIC AND CULTURE Routine 01/05/2025 2:07 PM EDT Human immunodeficiency virus (HIV) disease ([facility] V24, [facility] V28) Other specified noninflammatory disorders of vagina DRUG ABUSE SCREEN 8A PANEL, URINE Routine 01/05/2025 2:07 PM EDT Human immunodeficiency virus (HIV) disease ([facility] V24, [facility] V28) Other specified noninflammatory disorders of vagina VAGINITIS PATHOGENS BY PCR Routine 01/05/2025 2:07 PM EDT Human immunodeficiency virus (HIV) disease ([facility] V24, [facility] V28) Other specified noninflammatory disorders of vagina CHLAMYDIA TRACHOMATIS AND NEISSERIA GONORRHOEAE PCR Routine 01/05/2025 2:07 PM EDT Human immunodeficiency virus (HIV) disease ([facility] V24, [facility] V28) Other specified noninflammatory disorders of vagina URINALYSIS WITH REFLEX MICROSCOPIC AND CULTURE Routine 01/05/2025 2:07 PM EDT Human immunodeficiency virus (HIV) disease ([facility] V24, [facility] V28) Other specified noninflammatory disorders of vagina CULTURE URINE Routine 01/05/2025 2:07 PM EDT Human immunodeficiency virus (HIV) disease ([facility] V24, [facility] V28) Other specified noninflammatory disorders of vagina CULTURE URINE Routine 01/05/2025 2:07 PM EDT Human immunodeficiency virus (HIV) disease ([facility] V24, [facility] V28) Other specified noninflammatory disorders of vagina documented in this encounter Results * Culture urine (01/05/2025 2:07 PM EDT) [facility] Culture, Urine No growth 01/07/2025 7:38 AM EDT [facility] Urine Urine specimen obtained by clean catch procedure / Unknown 01/05/2025 2:07 PM EDT 01/06/2025 11:32 AM EDT us Makenna Fernandez MD LAB MICROBIOLOGY - GENERA L ORDERABLES Final Result [facility] [address] [place] [address], [place] [phone] * (ABNORMAL) Urinalysis with reflex microscopic and culture (01/05/2025 2:07 PM EDT) [facility] Specific [place] Urine 1.028 1.003 - 1.030 LAB URINALYSIS - AUTOMATED METHOD 01/06/2025 11:32 AM EDT [facility] pH, Urine 5.0 5.0 - 8.0 pH LAB URINALYSIS - AUTOMATED METHOD 01/06/2025 11:32 AM T [facility] Leukocytes, Urine Trace(A) Negative LAB URINALYSIS - AUTOMATED METHOD 01/06/2025 11:32 AM T [facility] Nitrite, Urine Negative Negative LAB URINALYSIS - AUTOMATED METHOD 01/06/2025 11:32 AM [facility] Protein, Urine 30(A) <=Trace mg/dL LAB URINALYSIS - AUTOMATED METHOD 01/06/2025 11:32 AM [facility] Glucose, Urine Negative Negative mg/dL LAB URINALYSIS - AUTOMATED METHOD 01/06/2025 11:32 AM [facility] Ketones, Urine Trace(A) Negative mg/dL LAB URINALYSIS - AUTOMATED METHOD 01/06/2025 11:32 AM [facility] Urobilinogen, Urine 1.0 0.2 - 1.0 mg/dL LAB URINALYSIS - AUTOMATED METHOD 01/06/2025 11:32 AM [facility] Bilirubin, Urine Small(A) Negative LAB URINALYSIS - AUTOMATED METHOD 01/06/2025 11:32 AM [facility] Blood, Urine Small(A) Negative LAB URINALYSIS - AUTOMATED METHOD 01/06/2025 11:32 AM [facility] RBC, Urine 47.5(H) 0 - 4 /HPF LAB URINALYSIS - AUTOMATED METHOD 01/06/2025 11:32 AM [facility] WBC, Urine 1.9 0 - 4 /HPF LAB URINALYSIS - AUTOMATED METHOD 01/06/2025 11:32 AM [facility] Squamous Epithelial, Urine 79(H) 0 - 60 /LPF LAB URINALYSIS - AUTOMATED METHOD 01/06/2025 11:32 AM [facility] Bacteria, Urine Negative Negative /HPF LAB URINALYSIS - AUTOMATED METHOD 01/06/2025 11:32 AM [facility] Hyaline Casts, Urine 5.6(H) 0 - 3 /LPF LAB URINALYSIS - AUTOMATED METHOD 01/06/2025 11:32 AM [facility] Urine Urine specimen obtained by clean catch procedure / Unknown 01/05/2025 2:07 PM EDT 01/06/2025 11:15 AM EDT us Makenna Fernandez MD LAB URINE ORDERABLES Elizabeth l Result Performing Organization Address [facility] Co de Phone Number [facility] [address] [place] [address], * Vaginitis pathogens molecular study (01/05/2025 2:07 PM EDT) Trichomonas vaginalis Negative Negative 01/07/2025 1:58 PM EDT [facility] Gardnerella vaginalis Negative Negative 01/07/2025 1:58 PM EDT [facility] Alondra Species Negative Negative 1:58 PM EDT [facility] Swab Vaginal structure / Unknown 01/05/2025 2:07 PM EDT 01/06/2025 11:15 AM EDT us Makenna Fernandez MD LAB MICROBIOLOGY - GENERA L ORDERABLES Final Result Performing Organization Address [facility] Co de Phone Number [facility] [address] [place] [address], [place] [phone] * (ABNORMAL) Drug abuse screen 8a panel, urine (01/05/2025 2:07 PM EDT) Amphetamine Screen, Ur Negative Negative LAB CHEMISTRY METHOD 12:29 PM EDT [facility] Comment:Certain OTC medicati ons containing ephedrine, phenylephrine, pseudoephedrine and phenylpropanolamine can cause false positive results. Barbiturate Screen, Ur Negative Negative LAB CHEMISTRY METHOD 5 12:29 PM EDT [facility] Benzodiazepine Screen, Ur Negative Negative LAB CHEMISTRY METHOD 5 12:29 PM EDT [facility] Cocaine Screen, Ur Positive(A ) Negative LAB [facility]STR[facility] 5 12:[facility] Opiate Screen, Ur Negative Negative LAB CHEMISTRY METHOD 5 12:29 PM [facility] Cannabinoid (THC) Screen, Ur Positive(A ) Negative LAB CHEMISTRY METHOD 12:29 PM T [facility] Comment:Specimens from patie nts taking pantoprazole sodium (Protonix) have been shown to produce false positive results. Oxycodone Screen, Ur Negative Negative LAB CHEMISTRY METHOD 5 12:29 PM [facility] Fentanyl, Ur Negative Negative LAB CHEMISTRY METHOD 5 12:29 PM [facility] Urine Urine specimen obtained by clean catch procedure / Unknown 01/05/2025 2:07 PM EDT 01/06/2025 11:15 AM EDT Narrative [facility] - 01/06/2025 12:29 PM EDT Assay cutoffs: Amphetamines 1000 ng/mL Barbiturates 200 ng/mL Benzodiazepines 200 ng/mL Cocaine 300 ng/mL Fentanyl 1 ng/mL Opiates 300 ng/mL Oxycodone 100 ng/mL THC 50 ng/mL Semi-quantitative assay for screening purposes only. Unconfirmed screening result should not be used for non-medical purposes. *ALTERNATE METHOD CONFIRMATION DONE UPON REQUEST ONLY* us Makenna Fernandez MD LAB URINE ORDERABLES Elizabeth naranjo Result [facility] [address] [place] [address], * Culture urine (01/05/2025 2:07 PM EDT) Culture, Urine No growth 01/07/2025 7:43 AM [facility] Urine Urine specimen obtained by clean catch procedure / Unknown 01/05/2025 2:07 PM EDT 01/06/2025 11:15 AM EDT Makenna Fernandez MD LAB MICROBIOLOGY - GENERA L ORDERABLES Final Result Performing Organization Address City/[facility]/ZIP Co de Phone Number [facility] [address] [place] [address], [place] [phone] * Chlamydia trachomatis and Neisseria gonorrhoeae molecular study (01/05/2025 2:07 PM EDT) Neisseria gonorrhoeae PCR Negative Negative LAB MOLECULAR DIAGNOSTICS METHOD 01/06/2025 2:07 PM EDT [facility] Chlamydia trachomatis PCR Negative Negative LAB MOLECULAR DIAGNOSTICS METHOD 01/06/2025 2:07 PM EDT [facility] Urine Cervix uteri structure / Unknown 01/05/2025 2:07 PM EDT 01/06/2025 11:15 AM EDT Makenna Fernandez MD LAB MICROBIOLOGY - GENERA L ORDERABLES Final Result Performing Organization Address [facility] Co de Phone Number [facility] [address] [place] [address], [place] [phone] documented in this encounter Visit Diagnoses Diagnosis Human immunodeficiency virus (HIV) disease ([facility] V24, [facility] V28) Human immunodeficiency virus [HIV] disease Other specified noninflammatory disorders of vagina documented in this encounter Additional Health Concerns Infection Onset Date Last Indicated Resolved Time Enterovirus 01/04/2025 01/04/2025 Rhinovirus 01/04/2025 01/04/2025 documented as of this encounter Care Teams [employer] Labor Supervisor Relationship Specialty Start Date End Date Aparna Jiménez MD [address] [place] [address] PCP - General Internal Medicine 10/14/21 documented as of this encounter
--- OUTSIDE RECORDS SUMMARY | 2025-01-13 18:40 | XMS_ITS | Clinical Summary ---
Author Organization [facility] Address [address] [place] [address] Phone Care Team Providers Care Computer Programming Manager Name Role Phone Aparna Jiménez MD Primary Care Provider [phone] Allergies Active Allergy Reactions Criticality Noted Date Comments Sulfamethoxazole-Trimethoprim Unknown 2023 Hydromorphone Itching 02/19/2024 Morphine Itching 02/19/2024 Medications ammonium lactate (LAC-HYDRIN) 12 % lotion Apply to soles of feet daily. At night wear socks to bed 4 Active ciclopirox (PENLAC) 8 % solution Apply daily to nails clean medication residue off of nail plate every 3 days with rubbing alcohol 4 Active Spiriva Respimat 2.5 mcg/actuation inhalation sprayIndications: Severe persistent asthma, uncomplicated (CMS/HCC V28),Nicotine dependence, cigarettes, uncomplicated INHALE TWO PUFFS ONCE DAILY 4 g 11 5 Active Ventolin HFA 90 mcg/actuation inhaler INHALE TWO PUFFS BY MOUTH EVERY FOUR HOURS NEEDED FOR WHEEZING 18 g 2 5 Active bictegravir-emtri citabine-tenofovi r alafenamide (BIKTARVY) 50-200-25 mg per tablet Take [...] mg total) by mouth at bedtime. Active buprenorphine-nal oxone (SUBOXONE) 8-[address] [...] mg total) by mouth at bedtime. Active fluticasone-salme terol (ADVAIR DISKUS) 250-50 mcg/dose diskus inhaler Inhale [...] (one) time each day. Hs medication Active Active Problems Problem Noted Date Diagnosed Date HIV (human immunodeficiency virus infection) ([facility] V24, [facility] V28) 01/04/2025 Foot ulcer ([facility] V24, [facility] V28) 01/04/2025 Encounters Date Type Department Care Team Description 01/06/2025 Lab Requisition [facility] Main Lab [address] [place] [address] Makenna Fernandez MD Unspecified external cause status 01/06/2025 Lab Requisition [facility] Lab [address] [place] [address] Makenna Fernandez MD Human immunodeficiency virus (HIV) disease ([facility] V24, [facility] V28); Other specified noninflammatory disorders of vagina 01/04/2025 12:49 PM EDT - 01/04/2025 7:30 PM EDT Hospital Encounter [facility] [address] [place] [phone] Doug Genao MD Bukalo, Nermina, MD Cellulitis and abscess of foot (Primary Dx); COPD exacerbation ([facility] V24, [facility] V28) Discharge Disposition: Home or Self Care 12/18/2024 Lab Requisition [facility] - Main Lab [address] [facility] [place] [address] Makenna Fernandez MD Human immunodeficiency virus (HIV) disease ([facility] V24, [facility] V28) 11/06/2024 Telephone Pulmonology - [place] [address] [place] [phone] Radha Bryant MA 10/28/2024 Telephone [facility] Pulmonary [address] [place] [phone] Will Hernandez MA from Last 3 Months Immunizations Immunization Administration Dates Next Due [employer] SARS-CoV-2 COVID -19, vector-nr, rS-Ad26, preservative free 09/27/2020 Jigsaw24 SARS-CoV-2 COVID-19, mRNA, LNP-S, preservative free 06/26/2001 Tdap Tetanus diptheria acell ular pertussis (Boostrix; Adacel) 7yo and older 01/04/2025 Medical History Medical History Date Comments Asthma HIV (human immunodeficiency virus infection) ([facility] V24, [facility] V28) Anxiety COPD (chronic obstructive pu lmonary disease) ([facility] V24, [facility] V28) Immune deficiency disorder ([facility] V24) HIV (human immunodeficiency virus infection) ([facility] V24, [facility] V28) 01/04/2025 Social History Tobacco Use Types Packs/Day Years [...] Sign Reading Time Taken Comments Blood Pressure 121/68 01/04/2025 6:04 PM EDT Pulse 77 01/04/2025 6:04 PM EDT Temperature 37 C (98.6 F) 01/04/2025 6:04 PM EDT Respiratory Rate 17 01/04/2025 6:04 PM EDT Oxygen Saturation 95% 01/04/2025 6:00 PM EDT Inhaled Oxygen Concentration - - Weight 76.5 kg (168 lb 11.2 oz) 025 6:04 PM EDT Height 172.7 cm (5' 8 ) 01/04/2025 6:04 PM EDT Body Mass Index 25.65 01/04/2025 6:04 PM EDT Plan of Treatment Health Maintenance Due Date Last Done Comments Breast Cancer Screening 1976 MMR Vaccines (1 of 2 - Risk 2-dose series) 1994 Cervical Cancer Screening: Pap Smear 1997 Cholesterol Screening (Lipid Panel) 03/19/2022 Social Influencers of Health Screening 03/19/2022 Meningococcal ACWY Vaccine (3 - Risk 2-dose series) 05/03/2022 05/03/2017, 11/16/2016 Depression Screening 04/09/2024 COVID-19 Vaccine ( season) 2024 03/05/2024, 02/21/2022, 04/06/2021, Additional history exists Influenza Vaccine (#1) 2024 , 01/20/2021, 02/12/2020, Additional history exists Colorectal Cancer Screening: FIT-DNA (Cologuard) 05/04/2026 05/04/2023 Pneumococcal Vaccine: Pediatrics (0 to 5 Years) and At-Risk Patients (6 to 49 Years) (4 of 4 - PCV20 or PCV21) 12/20/2026 12/20/2021, 01/08/2014, 01/18/2012, Additional history exists DTaP,Tdap,and Td Vaccines (9 - Td or Tdap) 01/04/2035 01/04/2025, 07/23/2015, 12/12/2013, Additional history exists RSV Immunization Adult Patients (1 - 1-dose 75+ series) 2051 Hepatitis A Vaccines Completed 03/23/2005, 03/31/20 Hepatitis B Vaccines Completed 10/04/2021, 08/08/2012, 03/31/2004, Additional history exists Hepatitis C Screening Completed 12/30/2024, 025 HIB Vaccines Aged Out No longer eligi [...] PM EDT Human immunodeficiency virus (HIV) disease ([facility] V24, [facility] V28) Other specified noninflammatory disorders of vagina URINALYSIS WITH REFLEX MICROSCOPIC AND CULTURE Routine 01/05/2025 2:07 PM EDT Human immunodeficiency virus (HIV) disease ([facility] V24, [facility] V28) Other specified noninflammatory disorders of vagina DRUG ABUSE SCREEN 8A PANEL, URINE Routine 01/05/2025 2:07 PM EDT Human immunodeficiency virus (HIV) disease ([facility] V24, [facility] V28) Other specified noninflammatory disorders of vagina CULTURE URINE Routine 01/05/2025 2:07 PM EDT Human immunodeficiency virus (HIV) disease ([facility] V24, [facility] V28) Other specified noninflammatory disorders of vagina VAGINITIS PATHOGENS BY PCR Routine 01/05/2025 2:07 PM EDT Human immunodeficiency virus (HIV) disease ([facility] V24, [facility] V28) Other specified noninflammatory disorders of vagina CULTURE URINE Routine 01/05/2025 2:07 PM EDT Human immunodeficiency virus (HIV) disease ([facility] V24, [facility] V28) Other specified noninflammatory disorders of vagina CHLAMYDIA TRACHOMATIS AND NEISSERIA GONORRHOEAE PCR Routine 01/05/2025 2:07 PM EDT Human immunodeficiency virus (HIV) disease ([facility] V24, [facility] V28) Other specified noninflammatory disorders of vagina ECG ANNOTATED 01/05/2025 RESPIRATORY VIRUS PANEL MOLECULAR STUDY STAT 01/04/2025 6:55 PM EDT XR CHEST 1 VIEW STAT 01/04/2025 5:33 PM EDT CULTURE WOUND WITH GRAM STAIN STAT 01/04/2025 4:21 PM EDT HC I&D/EXCISION/BIOPSY BONE MARROW/TISSUE/TUMOR/HTO MA/ABSC/CYST LEVEL 1 Routine 01/04/2025 4:19 PM EDT IA INCISION & DRAINAGE ABSCESS SIMPLE/SINGLE Routine 01/04/2025 4:19 PM EDT XR FOOT 3+ VIEWS RIGHT STAT 2:53 PM EDT ECG 12-LEAD STAT 01/04/2025 2:36 PM EDT LACTATE DEHYDROGENASE STAT 01/04/2025 1:55 PM EDT C-REACTIVE PROTEIN STAT 01/04/2025 1: 55 PM EDT SEDIMENTATION RATE STAT 01/04/2025 1: 55 PM EDT HCG, SERUM, QUALITATIVE STAT 01/05/20 1:55 PM EDT CBC WITH AUTO DIFFERENTIAL STAT 01/04/2025 1:55 PM EDT ACTIVATED PARTIAL THROMBOPLASTIN TIME STAT 01/04/2025 1:55 PM EDT PROTHROMBIN TIME WITH INR STAT 01/04/2025 1:55 PM EDT CBC AND DIFFERENTIAL STAT 01/04/2025 1:55 PM EDT TROPONIN I HIGH SENSITIVITY STAT 01/04/2025 1:55 PM EDT MAGNESIUM STAT 01/04/2025 1:55 PM EDT LACTATE STAT 01/04/2025 1:55 PM EDT COMPREHENSIVE METABOLIC PANEL STAT 01/04/2025 1:55 PM EDT B-TYPE NATRIURETIC PEPTIDE STAT 01/04/2025 1:55 PM EDT VENOUS BLOOD GAS STAT 01/04/2025 1:55 PM EDT CBC WITH AUTO DIFFERENTIAL Routine 12/30/2024 10:51 AM EDT Human immunodeficiency virus (HIV) disease (CMS/HCC V24, CMS/HCC V28) LYMPHOCYTE T-CELL PANEL Routine 12/31/19 10:51 AM EDT Human immunodeficiency virus (HIV) disease (CMS/HCC V24, CMS/HCC V28) TREPONEMA PALLIDUM ANTIBODY WITH REFLEX TO RPR AND PARTICLE AGGLUTINATION Routine 12/30/2024 10:51 AM EDT Human immunodeficiency virus (HIV) disease ([facility]/HCC V24, [facility] V28) HIV 1 MOLECULAR STUDY QUANTITATIVE Routine 12/30/2024 10:51 AM EDT Human immunodeficiency virus (HIV) disease ([facility]/HCC V24, [facility]/HCC V28) HEPATITIS C VIRUS QUANTITATIVE PCR Routine 12/30/2024 10:51 AM EDT Human immunodeficiency virus (HIV) disease ([facility] V24, [facility] V28) CREATININE, SERUM Routine 12/30/2024 10:51 AM EDT Human immunodeficiency virus (HIV) disease ([facility] V24, [facility] V28) ASPARTATE AMINOTRANSFERASE Routine 12/30/2024 10:51 AM EDT Human immunodeficiency virus (HIV) disease ([facility] V24, [facility] V28) ALANINE AMINOTRANSFERASE Routine 12/30/2024 10:51 AM EDT Human immunodeficiency virus (HIV) disease ([facility] V24, [facility] V28) ELECTROLYTE PANEL Routine 12/30/2024 10:51 AM EDT Human immunodeficiency virus (HIV) disease ([facility] V24, [facility] V28) CBC AND DIFFERENTIAL Routine 12/30/2024 10:51 AM EDT Human immunodeficiency virus (HIV) disease ([facility] V24, [facility] V28) CHLAMYDIA TRACHOMATIS AND NEISSERIA GONORRHOEAE PCR Routine 12/18/2024 12:00 AM EDT Human immunodeficiency virus (HIV) disease ([facility] V24, [facility] V28) from Last 3 Months Results * (ABNORMAL) Urinalysis with reflex microscopic and culture (01/05/2025 2:07 PM EDT) [facility] Specific [place] Urine 1.028 1.003 - 1.030 LAB URINALYSIS - AUTOMATED METHOD 01/06/2025 11:32 AM [facility] LAB pH, Urine 5.0 5.0 - 8.0 pH LAB URINALYSIS - AUTOMATED METHOD 01/06/2025 11:32 AM [facility] LAB Leukocytes, Urine Trace(A) Negative LAB URINALYSIS - AUTOMATED METHOD 01/06/2025 11:32 AM [facility] Nitrite, Urine Negative Negative LAB URINALYSIS - AUTOMATED METHOD 01/06/2025 11:32 AM [facility] Protein, Urine 30(A) <=Trace mg/dL LAB URINALYSIS - AUTOMATED METHOD 01/06/2025 11:32 AM [facility] Glucose, Urine Negative Negative mg/dL LAB URINALYSIS - AUTOMATED METHOD 01/06/2025 11:32 AM [facility] Ketones, Urine Trace(A) Negative mg/dL LAB URINALYSIS - AUTOMATED METHOD 01/06/2025 11:32 AM [facility] Urobilinogen, Urine 1.0 0.2 - 1.0 mg/dL LAB URINALYSIS - AUTOMATED METHOD 01/06/2025 11:32 AM [facility] Bilirubin, Urine Small(A) Negative LAB URINALYSIS - AUTOMATED METHOD 01/06/2025 11:32 AM [facility] Blood, Urine Small(A) Negative LAB URINALYSIS - AUTOMATED METHOD 01/06/2025 11:32 AM [facility] RBC, Urine 47.5(H) 0 - 4 /HPF LAB URINALYSIS - AUTOMATED METHOD 01/06/2025 11:32 AM [facility] WBC, Urine 1.9 0 - 4 /HPF LAB URINALYSIS - AUTOMATED METHOD 01/06/2025 11:32 AM [facility] Squamous Epithelial, Urine 79(H) 0 - 60 /LPF LAB URINALYSIS - AUTOMATED METHOD 01/06/2025 11:32 AM [facility] Bacteria, Urine Negative Negative /HPF LAB URINALYSIS - AUTOMATED METHOD 01/06/2025 11:32 AM EDT [facility] Hyaline Casts, Urine 5.6(H) 0 - 3 /LPF LAB URINALYSIS - AUTOMATED METHOD 01/06/2025 11:32 AM EDT [facility] Urine Urine specimen obtained by clean catch procedure / Unknown 01/05/2025 2:07 PM EDT 01/06/2025 11:15 AM EDT us Makenna Fernandez MD LAB URINE ORDERABLES Elizabeth naranjo Result [facility] [address] [place] [address], [place] [phone] * (ABNORMAL) Drug abuse screen 8a panel, urine (01/05/2025 2:07 PM EDT) Amphetamine Screen, Ur Negative Negative LAB CHEMISTRY METHOD 5 12:29 PM EDT [facility] Comment:Certain OTC medicati ons containing ephedrine, phenylephrine, pseudoephedrine and phenylpropanolamine can cause false positive results. Barbiturate Screen, Ur Negative Negative LAB CHEMISTRY METHOD 5 12:29 PM [facility] Benzodiazepine Screen, Ur Negative Negative LAB CHEMISTRY METHOD 5 12:29 PM [facility] Cocaine Screen, Ur Positive(A ) Negative LAB CHEMISTRY METHOD 5 12:29 PM EDT [facility] Opiate Screen, Ur Negative Negative LAB CHEMISTRY METHOD 5 12:29 PM [facility] Cannabinoid (THC) Screen, Ur Positive(A ) Negative LAB CHEMISTRY METHOD 5 12:29 PM [facility] Comment:Specimens from patie nts taking pantoprazole sodium (Protonix) have been shown to produce false positive results. Oxycodone Screen, Ur Negative Negative LAB CHEMISTRY METHOD 12:29 PM EDT [facility] Fentanyl, Ur Negative Negative LAB CHEMISTRY METHOD 12:29 PM EDT [facility] Urine Urine specimen obtained by clean catch procedure / Unknown 01/05/2025 2:07 PM EDT 01/06/2025 11:15 AM EDT Narrative [facility] - 01/06/2025 12:29 PM EDT Assay cutoffs: Amphetamines 1000 ng/mL Barbiturates 200 ng/mL Benzodiazepines 200 ng/mL Cocaine 300 ng/mL Fentanyl 1 ng/mL Opiates 300 ng/mL Oxycodone 100 ng/mL THC 50 ng/mL Semi-quantitative assay for screening purposes only. Unconfirmed screening result should not be used for non-medical purposes. *ALTERNATE METHOD CONFIRMATION DONE UPON REQUEST ONLY* Makenna Fernandez MD LAB URINE ORDERABLES Elizabeth l Result [facility] [address] [place] [address], * Vaginitis pathogens molecular study (01/05/2025 2:07 PM EDT) Trichomonas vaginalis Negative Negative 01/07/2025 1:58 PM EDT [facility] Gardnerella vaginalis Negative Negative 01/07/2025 1:58 PM EDT [facility] Alondra Species Negative Negative 1:58 PM EDT [facility] Swab Vaginal structure / Unknown 01/05/2025 2:07 PM EDT 01/06/2025 11:15 AM EDT Makenna Fernandez MD LAB MICROBIOLOGY - GENERA L ORDERABLES Final Result [facility] [address] [place] [address], [place] [phone] * Chlamydia trachomatis and Neisseria gonorrhoeae molecular study (01/05/2025 2:07 PM EDT) Only the most recent of2 resultswithin the time period is included. Pathologist [facility] [place] Neisseria gonorrhoeae PCR Negative Negative LAB MOLECULAR DIAGNOSTICS METHOD 01/06/2025 2:07 PM EDT [facility] Chlamydia trachomatis PCR Negative Negative LAB MOLECULAR DIAGNOSTICS METHOD 01/06/2025 2:07 PM EDT [facility] Urine Cervix uteri structure / Unknown 01/05/2025 2:07 PM EDT 01/06/2025 11:15 AM EDT Makenna Fernandez MD LAB MICROBIOLOGY - GENERA L ORDERABLES Final Result Performing Organization Address City/[facility]/ZIP Co de Phone Number [facility] [address] [place] [address], [place] [phone] * Culture urine (01/05/2025 2:07 PM EDT) Only the most recent of2 resultswithin the time period is included. [facility] Culture, Urine No growth 01/07/2025 7:38 AM EDT [facility] Urine Urine specimen obtained by clean catch procedure / Unknown 01/05/2025 2:07 PM EDT 01/06/2025 11:32 AM EDT Makenna Fernandez MD LAB MICROBIOLOGY - GENERA L ORDERABLES Final Result [facility] [address] [place] [address], [place] [phone] * ECG-Annotated (01/05/2025) us Provider Onbase ECG ORDERABLES Final Result * (ABNORMAL) Respiratory virus panel molecular study (01/04/2025 6:55 PM EDT) Pathologist [facility] [place] Adenovirus Detection by PCR Not Detected Not Detected LAB MICROBIOLOGY METHOD 01/04/2025 7:52 PM EDT [facility] Influenza A PCR Not Detected Not Detected LAB MICROBIOLOGY METHOD 01/04/2025 7:52 PM EDT [facility] Influenza B PCR Not Detected Not Detected LAB MICROBIOLOGY METHOD 01/04/2025 7:52 PM EDT [facility] Coronavirus 229E Not Detected Not Detected LAB MICROBIOLOGY METHOD 01/04/2025 7:52 PM EDT [facility] Coronavirus HKU1 Not Detected Not Detected LAB MICROBIOLOGY METHOD 01/04/2025 7:52 PM EDT [facility] Coronavirus OC43 Not Detected Not Detected LAB MICROBIOLOGY METHOD 01/04/2025 7:52 PM EDT [facility] Coronavirus NL63 Not Detected Not Detected LAB MICROBIOLOGY METHOD 01/04/2025 7:52 PM EDT [facility] Parainfluenza Virus 1 Not Detected Not Detected LAB MICROBIOLOGY METHOD 01/04/2025 7:52 PM EDT [facility] Parainfluenza Virus 2 Not Detected Not Detected LAB MICROBIOLOGY METHOD 01/04/2025 7:52 PM EDT [facility] Parainfluenza Virus 3 Not Detected Not Detected LAB MICROBIOLOGY METHOD 01/04/2025 7:52 PM EDT [facility] Parainfluenza Virus 4 Not Detected Not Detected LAB MICROBIOLOGY METHOD 01/04/2025 7:52 PM EDT [facility] RSV PCR Not Detected Not Detected LAB MICROBIOLOGY METHOD 01/04/2025 7:52 PM EDT [facility] Human Metapneumovirus A and B Not Detected Not Detected LAB MICROBIOLOGY METHOD 01/04/2025 7:52 PM EDT [facility] Rhinovirus/Entero virus Detected(A ) Not Detected LAB MICROBIOLOGY METHOD 01/04/2025 7:52 PM EDT [facility] Bordetella pertussis Not Detected Not Detected LAB MICROBIOLOGY METHOD 01/04/2025 7:52 PM EDT [facility] Bordetella parapertussis Not Detected Not Detected LAB MICROBIOLOGY METHOD 01/04/2025 7:52 PM EDT [facility] Mycoplasma pneumo by PCR Not Detected Not Detected LAB MICROBIOLOGY METHOD 01/04/2025 7:52 PM EDT [facility] Chlamydia pneumoniae Not Detected Not Detected LAB MICROBIOLOGY METHOD 01/04/2025 7:52 PM EDT [facility] SARS COV-2 Not Detected Not Detected LAB MICROBIOLOGY METHOD 01/04/2025 7:52 PM EDT [facility] Swab Both anterior nares / Unknown Non-blood Collection / Unknown 01/04/2025 6:55 PM EDT 01/04/2025 7:03 PM EDT Narrative [facility] - 01/04/2025 7:52 PM EDT Testing was performed using the [employer] Respiratory Pathogen PCR Assay. All results must be correlated with the clinical findings. Results should not be used as the sole basis for diagnosis. False Negative results may occur from the presence of sequence variants in the region targeted by the assay or the presence of inhibitors. Results may be affected by concurrent antiviral/antimicrobial therapy or levels of organisms that are below the limit of detection. us Dina Hanna NP LAB MICROBIOLOGY - GENER AL ORDERABLES Final Result [facility] [address] [place] [address], * XR Chest 1 View (01/04/2025 5:33 PM EDT) Anatomical Region Laterality Modality Body Radiographic Hazel ging 01/05/2025 8:35 AM EDT Impressions 01/05/2025 8:36 AM EDT Impression: No active pulmonary process identified. No significant change. [employer] PA ([id number]) -------- FINAL REPORT -------- Dictated By: Mouna August Dictated Date: 01/05/2025 08:35 ET Assigned Physician: Mouna August Reviewed and Electronically Signed By: Mouna August Signed Date: 01/05/2025 08:36 ET Workstation ID: [id number] Transcribed By: Self Edit Transcribed Date: 01/05/2025 08:35 ET Narrative 01/05/2025 8:36 AM EDT History: COPD associated with chronic bronchitis. Comparison: 12/19/23 Findings: Portable AP upright chest at 5:30 PM. The cardiomediastinal silhouette, hilar contours and pulmonary vascularity are within normal limits. The lungs are grossly clear. The costophrenic angles are sharp. Procedure Note Mouna August MD - 01/05/2025 History: COPD associated with chronic bronchitis. Comparison: 12/19/23 Findings: Portable AP upright chest at 5:30 PM. The cardiomediastinal silhouette,hilar contours and pulmonary vascularity are within normal limits. Thelungs are grossly clear. The costophrenic angles are sharp. IMPRESSION: Impression: No active pulmonary process identified. No significant change. Telerad PA ([id number]) -------- FINAL REPORT -------- Dictated By: Mouna August Dictated Date: 01/05/2025 08:35 ET Assigned Physician: Mouna August Reviewed and Electronically Signed By: Mouna August Signed Date: 01/05/2025 08:36 ET Workstation ID: [id number] Transcribed By: Self Edit Transcribed Date: 01/05/2025 08:35 ET us Neal Vieira MD IMG XR PROCEDURES Final Result * (ABNORMAL) Culture wound with gram stain (01/04/2025 4:21 PM EDT) Culture, Wound Few Staphylococcus warneri(A) KRISTIAN 01/08/2025 9:22 AM EDT [facility] Comment: Beta-lactamase negative The organism value for this result has been updated. These results have been appended to the previously preliminary verified report. Edited result: Previously reported as Gram Positive Cocci on 01/06/2025 at 1046 EDT. Gram Stain Result Few Epithelial cells 01/08/2025 9:22 AM EDT [facility] Gram Stain Result Rare Polymorphonuclear leukocytes 01/08/2025 9:22 AM EDT [facility] Gram Stain Result No organisms seen 01/08/2025 9:22 AM EDT [facility] Swab Structure of right foot / Unknown Non-blood Collection / Unknown 01/04/2025 4:21 PM EDT 01/04/2025 4:39 PM EDT Narrative Organism Antibiotic Method Susceptibility Staphylococcus warneri Benzylpenicillin KRISTIAN Susceptible Comment:This is an a ppended report. These results have been appended to a previously preliminary verified report. Staphylococcus warneri Oxacillin KRISTIAN <=0.25 ug/ml: Susceptible Staphylococcus warneri Gentamicin KRISTIAN <=0.5 ug/ml: Susceptible Staphylococcus warneri Ciprofloxacin KRISTIAN <=0.5 ug/ml: Susceptible Staphylococcus warneri Levofloxacin KRISTIAN <=0.12 ug/ml: Susceptible Staphylococcus warneri Erythromycin KRISTIAN >=8 ug/ml: Resistant Staphylococcus warneri Clindamycin KRISTIAN <=0.25 ug/ml: Susceptible Staphylococcus warneri Vancomycin KRISTIAN 1 ug/ml: Susceptible Staphylococcus warneri Tetracycline KRISTIAN <=1 ug/ml: Susceptible Staphylococcus warneri Rifampin KRISTIAN <=0.5 ug/ml: Susceptible us Doug Genao MD LAB MICROBIOLOGY - GENERAL ORDER RAGHAV Final Result [facility] [address] [place] [address], * IA INCISION & DRAINAGE ABSCESS SIMPLE/SINGLE, HC I&D/EXCISION/BIOPSY BONE MARROW/TISSUE/TUMOR/HTOMA/ABSC/CYST LEVEL 1 (01/04/2025 4:19 PM EDT) Narrative Doug Genao MD - 01/04/2025 4:19 PM EDT Doug Genao MD 01/04/2025 7:39 PM Incision and Drainage Date/Time: 01/04/2025 4:19 PM Performed by: Doug Genao MD Authorized by: Doug Genao MD Consent: Consent obtained: Verbal Consent given by: Patient Risks, benefits, and alternatives were discussed: yes Risks discussed: Bleeding, incomplete drainage, infection, damage to other organs and pain Alternatives discussed: No treatment and delayed treatment [place] protocol: Procedure explained and questions answered to patient or proxy's satisfaction: yes Patient identity confirmed: Verbally with patient and arm band Location: Type: Abscess Location: Lower extremity Lower extremity location: Foot Foot location: R foot Pre-procedure details: Skin preparation: Chlorhexidine with alcohol Sedation: Sedation type: None Anesthesia: Anesthesia method: Local infiltration Local anesthetic: Lidocaine 1% w/o epi Procedure type: Complexity: Simple Procedure details: Ultrasound guidance: yes Incision types: Single straight and elliptical Incision depth: Dermal Wound management: Probed and deloculated Drainage: Purulent Drainage amount: Scant Wound treatment: Wound left open Packing materials: None Post-procedure details: Procedure completion: Tolerated Doug Genao MD IN CLINIC/BEDSIDE ORDERABLES Fin al Result * XR Foot 3+ Views Right (01/04/2025 2:53 PM EDT) Anatomical Region Laterality Modality Lower Extremities, Foot Right [facility] 01/04/2025 3:58 PM EDT Impressions 01/04/2025 4:00 PM EDT Small calcaneal heel enthesophyte otherwise unremarkable right foot exam -------- FINAL REPORT -------- Dictated By: Zak Dennis Dictated Date: 01/04/2025 15:58 ET Assigned Physician: Zak Dennis Reviewed and Electronically Signed By: Zak Dennis Signed Date: 01/04/2025 16:00 ET Workstation ID: [id number] Transcribed By: Self Edit Transcribed Date: 01/04/2025 15:58 ET Narrative 01/04/2025 4:00 PM EDT Examination: Right foot 3 views. CLINICAL INDICATION: Pain. COMPARISON: None. FINDINGS: Visualized tarsal, metatarsals and the phalanges are unremarkable with no visible fracture or dislocation. The joint spaces are maintained normal. The ankle mortise and subtalar joints are normal. A small calcaneal heel enthesophyte. Procedure Note Zak Dennis MD - 01/04/2025 Examination: Right foot 3 views. CLINICAL INDICATION: Pain. COMPARISON: None. FINDINGS: Visualized tarsal, metatarsals and the phalanges areunremarkable with no visible fracture or dislocation. The joint spaces aremaintained normal. The ankle mortise and subtalar joints are normal. [place]all calcaneal heel enthesophyte. IMPRESSION: Small calcaneal heel enthesophyte otherwise unremarkable right foot exam -------- FINAL REPORT -------- Dictated By: Zak Dennis Dictated Date: 01/04/2025 15:58 ET Assigned Physician: Zak Dennis Reviewed and Electronically Signed By: Zak Dennis Signed Date: 01/04/2025 16:00 ET Workstation ID: [id number] Transcribed By: Self Edit Transcribed Date: 01/04/2025 15:58 ET Doug Genao MD IMG XR PROCEDURES Final Result * 12-Lead ECG (01/04/2025 2:36 PM EDT) Ventricular Rate ECG 77 BPM GEMUSE Atrial Rate 77 BPM GEMUSE P-R Interval 132 ms GEMUSE QRS Duration 78 ms GEMUSE Q-T Interval 390 ms GEMUSE QTc 441 ms GEMUSE P Wave [place] 66 degrees GEMUSE R [place] 83 degrees GEMUSE T [place] 72 degrees GEMUSE ECG Interpretation Normal sinus rhythm Normal ECG When compared with ECG of 12-OCT-2021 03:31, No significant change was found Confirmed by ALTON SILVA ([id number]) on 01/04/2025 10:50:50 PM GEMUSE 01/04/2025 2:36 PM EDT 01/04/2025 10:50 PM EDT oDug Genao MD ECG ORDERABLES Final Result GEMUSE * Troponin I High Sensitivity (01/04/2025 1:55 PM EDT) [facility] High Sensitivity Troponin I 3 <=54 ng/L LAB CHEMISTRY METHOD 01/04/2025 2:49 PM EDT [facility] Blood Venous blood specimen / Unknown Venipuncture / Unknown 01/04/2025 1:55 PM EDT 01/04/2025 2:11 PM EDT Narrative [facility] - 01/04/2025 2:49 PM EDT High levels of biotin in samples may falsely decrease hsTroponin values. Use caution when interpreting hsTroponin results in patients taking biotin who exhibit renal impairment (eGFR <60) or in patients taking more than 20 mg/day of biotin. us Doug Genao MD LAB BLOOD ORDERABLES Final Resul t [facility] [address] [place] [address], [place] [phone] * (ABNORMAL) CBC auto differential (01/04/2025 1:55 PM EDT) Only the most recent of2 resultswithin the time period is included. [facility] WBC 8.6 4.8 - 10.8 K/mcL LAB HEMETOLOGY METHOD 01/04/2025 2:22 PM EDT [facility] RBC 3.90 3.80 - 4.80 M/mcL LAB HEMETOLOGY METHOD 01/04/2025 2:22 PM EDT [facility] Hemoglobin 12.1 11.5 - 16.0 g/dL LAB HEMETOLOGY METHOD 01/04/2025 2:22 PM EDT [facility] Hematocrit 37.9 35.0 - 47.0 % LAB HEMETOLOGY METHOD 01/04/2025 2:22 PM EDT [facility] MCV 97.2 79.0 - 98.0 FL LAB HEMETOLOGY [facility] MCH 31.0 27.0 - 32.0 pcg LAB HEMETOLOGY METHOD 01/04/2025 2:22 PM [facility] MCHC 31.9(L) 32.0 - 37.0 g/dL LAB HEMETOLOGY METHOD 01/04/2025 2:22 PM [facility] RDW 13.9 11.0 - 15.0 % LAB HEMETOLOGY METHOD 01/04/2025 2:22 PM [facility] Platelets 245 130 - 400 K/mcL LAB HEMETOLOGY METHOD 01/04/2025 2:22 PM [facility] MPV 9.4 7.0 - 11.0 FL LAB HEMETOLOGY METHOD 01/04/2025 2:22 PM [facility] NRBC 0.0 <1.0 % LAB HEMETOLOGY METHOD 01/04/2025 2:22 PM [facility] NRBC Absolute 0.00 <0.10 K/mcL LAB HEMETOLOGY METHOD 01/04/2025 2:22 PM [facility] Neutrophils Relative 61.1 % LAB HEMETOLOGY METHOD 01/04/2025 2:22 PM [facility] Lymphocytes Relative 29.7 % LAB HEMETOLOGY METHOD 01/04/2025 2:22 PM [facility] Monocytes Relative 7.9 % LAB HEMETOLOGY METHOD 01/04/2025 2:22 PM [facility] Eosinophils Relative 0.7 % LAB HEMETOLOGY METHOD 01/04/2025 2:22 PM [facility] Basophils Relative 0.3 % LAB HEMETOLOGY METHOD 01/04/2025 2:22 PM [facility] Immature Granulocytes Relative 0.3 % LAB HEMETOLOGY METHOD 01/04/2025 2:22 PM EDT [facility] Neutrophils Absolute 5.25 1.50 - 7.00 K/mcL LAB HEMETOLOGY METHOD 01/04/2025 2:22 PM EDT [facility] Lymphocytes Absolute 2.56 1.00 - 5.00 K/mcL LAB HEMETOLOGY METHOD 01/04/2025 2:22 PM EDT [facility] Monocytes Absolute 0.68 0.20 - 1.00 K/mcL LAB HEMETOLOGY METHOD 01/04/2025 2:22 PM EDT [facility] Eosinophils Absolute 0.06 0.00 - 0.50 K/mcL LAB HEMETOLOGY METHOD 01/04/2025 2:22 PM EDT [facility] Basophils Absolute 0.03 0.00 - 0.20 K/mcL LAB HEMETOLOGY METHOD 01/04/2025 2:22 PM EDT [facility] Immature Granulocytes Absolute 0.03 0.00 - 0.03 K/mcL LAB HEMETOLOGY METHOD 01/04/2025 2:22 PM EDT [facility] Blood Venous blood specimen / Unknown Venipuncture / Unknown 01/04/2025 1:55 PM EDT 01/04/2025 2:11 PM EDT us Doug Genao MD LAB BLOOD ORDERABLES Final Resul t [facility] [address] [place] [address], * APTT (01/04/2025 1:55 PM EDT) aPTT 36.0 24.1 - 39.3 sec LAB COAGULATION METHOD 01/04/2025 2:43 PM EDT [facility] Blood Venous blood specimen / Unknown Venipuncture / Unknown 01/04/2025 1:55 PM EDT 01/04/2025 2:11 PM EDT us Doug Genao MD LAB BLOOD ORDERABLES Final Resul t Performing Organization Address City/[facility]/ZIP Co de Phone Number [facility] [address] [place] [address], [place] [phone] * Sedimentation Rate, Automated (01/04/2025 1:55 PM EDT) [facility] Sed Rate 18 0 - 20 mm/hr LAB HEMETOLOGY METHOD 01/04/2025 2:26 PM EDT [facility] Blood Venous blood specimen / Unknown Venipuncture / Unknown 01/04/2025 1:55 PM EDT 01/04/2025 2:11 PM EDT us Doug Genao MD LAB BLOOD ORDERABLES Final Resul t Performing Organization Address [facility] Co de Phone Number [facility] [address] [place] [address], [place] [phone] * Protime-INR (01/04/2025 1:55 PM EDT) [facility] Protime 12.2 10.6 - 13.9 sec LAB COAGULATION METHOD 01/04/2025 2:43 PM EDT [facility] INR 1.0 LAB COAGULATION METHOD 01/04/2025 2:43 PM EDT [facility] Blood Venous blood specimen / Unknown Venipuncture / Unknown 01/04/2025 1:55 PM EDT 01/04/2025 2:11 PM EDT us Doug Genao MD LAB BLOOD ORDERABLES Final Resul t Performing Organization Address [facility] Co de Phone Number [facility] [address] [place] [address], [place] [phone] * (ABNORMAL) C-reactive protein (01/04/2025 1:55 PM EDT) [facility] C-Reactive Protein 0.76(H) <=0.50 mg/dL LAB CHEMISTRY METHOD 01/04/2025 2:47 PM EDT [facility] Blood Venous blood specimen / Unknown Venipuncture / Unknown 01/04/2025 1:55 PM EDT 01/04/2025 2:11 PM EDT us Doug Genao MD LAB BLOOD ORDERABLES Final Resul t [facility] [address] [place] [address], [place] [phone] * hCG Qualitative (01/04/2025 1:55 PM EDT) [facility] hCG Qual Negative Negative 01/04/2025 2:36 PM EDT [facility] Blood Venous blood specimen / Unknown Venipuncture / Unknown 01/04/2025 1:55 PM EDT 01/04/2025 2:11 PM EDT us Doug Genao MD LAB BLOOD ORDERABLES Final Resul t Performing Organization Address [facility] Co de Phone Number [facility] [address] [place] [address], [place] [phone] * B-Type Natriuretic Peptide (BNP) (01/04/2025 1:55 PM EDT) [facility] BNP 85 <=100 pcg/mL LAB CHEMISTRY METHOD 01/04/2025 2:53 PM EDT [facility] Blood Venous blood specimen / Unknown Venipuncture / Unknown 01/04/2025 1:55 PM EDT 01/04/2025 2:11 PM EDT us Doug Genao MD LAB BLOOD ORDERABLES Final Resul t Performing Organization Address City/[facility]/ZIP Co de Phone Number [facility] [address] [place] [address], [place] [phone] * Magnesium (01/04/2025 1:55 PM EDT) Pathologist [facility] [place] Magnesium 1.9 1.9 - 2.6 mg/dL LAB CHEMISTRY METHOD 01/04/2025 2:47 PM EDT [facility] Blood Venous blood specimen / Unknown Venipuncture / Unknown 01/04/2025 1:55 PM EDT 01/04/2025 2:11 PM EDT us Doug Genao MD LAB BLOOD ORDERABLES Final Resul t Performing Organization Address City/[facility]/ZIP Co de Phone Number [facility] [address] [place] [address], [place] [phone] * LDH, Lactate dehydrogenase (01/04/2025 1:55 PM EDT) Pathologist [facility] [place] LDH 176 120 - 246 unit/L LAB CHEMISTRY METHOD 01/04/2025 2:47 PM EDT [facility] Blood Venous blood specimen / Unknown Venipuncture / Unknown 01/04/2025 1:55 PM EDT 01/04/2025 2:11 PM EDT us Doug Genao MD LAB BLOOD ORDERABLES Final Resul t [facility] [address] [place] [address], [place] [phone] * Lactate (01/04/2025 1:55 PM EDT) Pathologist [facility] [place] Lactate 1.0 0.4 - 2.0 mmol/L LAB CHEMISTRY METHOD 01/04/2025 2:49 PM EDT [facility] Blood Venous blood specimen / Unknown Venipuncture / Unknown 01/04/2025 1:55 PM EDT 01/04/2025 2:10 PM EDT us Doug Genao MD LAB BLOOD ORDERABLES Final Resul t Performing Organization Address [facility] Co de Phone Number [facility] [address] [place] [address], [place] [phone] * Venous blood gas (01/04/2025 1:55 PM EDT) pH, Usama 7.36 7.32 - 7.42 pH 01/04/2025 2:15 PM EDT [facility] pCO2, Usama 50 41 - 51 mmHg 01/04/2025 2:15 PM EDT [facility] pO2, Usama 30 25 - 40 mmHg 01/04/2025 2:15 PM EDT [facility] HCO3, Venous 25.2 22.0 - 26.0 mmol/L 01/04/2025 2:15 PM EDT [facility] O2 Sat, Usama 49.3 % 01/04/2025 2:15 PM EDT [facility] Base Excess, Usama 2.0 -2.0 - 2.0 mmol/L 01/04/2025 2:15 PM EDT [facility] Blood Venous blood specimen / Unknown Venipuncture / Unknown 01/04/2025 1:55 PM EDT 01/04/2025 2:10 PM EDT us Doug Genao MD LAB BLOOD ORDERABLES Final Resul t [facility] [address] [place] [address], [place] [phone] * Comprehensive Metabolic Panel (CMP) (01/04/2025 1:55 PM EDT) Sodium 141 133 - 145 mmol/L LAB CHEMISTRY METHOD 01/04/2025 2:47 PM EDT [facility] Potassium 4.1 3.5 - 5.5 mmol/L LAB CHEMISTRY METHOD 01/04/2025 2:47 PM [facility] Chloride 108 96 - 110 mmol/L LAB CHEMISTRY METHOD 01/04/2025 2:47 PM [facility] CO2 25 21 - 32 mmol/L LAB CHEMISTRY METHOD 01/04/2025 2:47 PM [facility] Anion Gap 8 3 - 11 LAB CHEMISTRY METHOD 01/04/2025 2:47 PM [facility] Glucose 96 70 - 100 mg/dL LAB CHEMISTRY METHOD 01/04/2025 2:47 PM [facility] BUN 13 5 - 25 mg/dL LAB CHEMISTRY METHOD 01/04/2025 2:47 PM [facility] Creatinine 0.56 0.50 - 1.10 mg/dL LAB CHEMISTRY METHOD 01/04/2025 2:47 PM [facility] eGFR 113 >=60 mL/min/1. 73m2 LAB CHEMISTRY METHOD 01/04/2025 2:47 PM [facility] Comment:Calculation based on the Chronic Kidney Disease Epidemiology Collaboration (CKD-EPI) equation refit without adjustment for race. BUN/Creatinine Ratio 23.2 LAB CHEMISTRY METHOD 01/04/2025 2:47 PM [facility] Calcium 8.6 8.5 - 10.5 mg/dL LAB CHEMISTRY METHOD 01/04/2025 2:47 PM [facility] AST (SGOT) 12 10 - 42 unit/L LAB CHEMISTRY METHOD 01/04/2025 2:47 PM [facility] ALT (SGPT) 19 10 - 60 unit/L LAB CHEMISTRY METHOD 01/04/2025 2:47 PM [facility] Alkaline Phosphatase 80 42 - 121 unit/L LAB CHEMISTRY METHOD 01/04/2025 2:47 PM [facility] Total Protein 6.4 6.0 - 8.0 g/dL LAB CHEMISTRY METHOD 01/04/2025 2:47 PM EDT [facility] Albumin 3.5 3.2 - 5.0 g/dL LAB CHEMISTRY METHOD 01/04/2025 2:47 PM EDT [facility] Total Bilirubin 0.2 0.0 - 1.4 mg/dL LAB CHEMISTRY METHOD 01/04/2025 2:47 PM EDT [facility] Blood Venous blood specimen / Unknown Venipuncture / Unknown 01/04/2025 1:55 PM EDT 01/04/2025 2:11 PM EDT Doug Genao MD LAB BLOOD ORDERABLES Final Resul t Performing Organization Address [facility]/ZIP Co de Phone Number [facility] [address] [place] [address], [place] [phone] * Treponema pallidum antibody with reflex to RPR and particle agglutination (12/30/2024 10:51 AM EDT) [facility] T. Pallidum Antibodies Negative Negative LAB CHEMISTRY METHOD 12/30/2024 12:53 PM EDT [facility] Blood Venous blood specimen / Unknown Venipuncture / Unknown 12/30/2024 10:51 AM EDT 12/30/2024 11:25 AM EDT Makenna Fernandez MD LAB BLOOD ORDERABLES Elizabeth l Result Performing Organization Address City/[facility]/ZIP Co de Phone Number [facility] [address] [place] [address], [place] [phone] * Hepatitis C virus quantitative molecular study (12/30/2024 10:51 AM EDT) [facility] HCV Qual Interp Not Detected Not Detected LAB MOLECULAR DIAGNOSTICS METHOD 12/30/2024 2:38 PM EDT [facility] Comment:HCV RNA not detected , unable to report quantitative results. Blood Venous blood specimen / Unknown Venipuncture / Unknown 12/30/2024 10:51 AM EDT 12/30/2024 11:25 AM EDT us Makenna Fernandez MD LAB BLOOD ORDERABLES Elizabeth l Result [facility] [address] [place] [address], [place] [phone] * (ABNORMAL) Lymphocyte T-cell panel (12/30/2024 10:51 AM EDT) CD4 794 426 - 1,776 cells/mcL 01/02/2025 9:18 AM EDT [facility] CD8 909(H) 161 - 838 cells/mcL 01/02/2025 9:18 AM EDT [facility] CD4/CD8 Ratio 0.87(L) 0.90 - 4.90 01/02/2025 9:18 AM EDT [facility] CD4 % 33 33 - 64 % 01/02/2025 9:18 AM EDT [facility] CD8 % 38 10 - 39 % 01/02/2025 9:18 AM EDT [facility] Blood Venous blood specimen / Unknown Venipuncture / Unknown 12/30/2024 10:51 AM EDT 12/30/2024 11:28 AM EDT us Makenna Fernandez MD LAB MOLECULAR DIAGNOSTICS ORDERABLES Final Result [facility] [address] [place] [address], [place] [phone] * (ABNORMAL) HIV 1 molecular study quantitative (12/30/2024 10:51 AM EDT) HIV-1 RNA Interpretation Detected (A) Not Detected LAB MOLECULAR DIAGNOSTICS METHOD 12/30/2024 2:38 PM EDT [facility] HIV-1 RNA Copies <20 <20 copies/mL LAB MOLECULAR DIAGNOSTICS METHOD 12/30/2024 2:38 PM EDT [facility] Comment:HIV RNA detected but below the limit of quantitation. Unable to report quantitative results <20 copies/mL. HIV-1 RNA Log <1.30 <1.30 Log 10 copies/mL LAB MOLECULAR DIAGNOSTICS METHOD 12/30/2024 2:38 PM EDT [facility] Blood Venous blood specimen / Unknown Venipuncture / Unknown 12/30/2024 10:51 AM EDT 12/30/2024 11:25 AM EDT Makenna Fernandez MD LAB BLOOD ORDERABLES Elizabeth l Result Performing Organization Address [facility] de Phone Number [facility] [address] [place] [address], * Creatinine (12/30/2024 10:51 AM EDT) Creatinine 0.62 0.50 - 1.10 mg/dL LAB CHEMISTRY METHOD 12/30/2024 12:05 PM EDT [facility] eGFR 110 >=60 mL/min/1. 73m2 LAB CHEMISTRY METHOD 12/30/2024 12:05 PM EDT [facility] Comment:Calculation based on the Chronic Kidney Disease Epidemiology Collaboration (CKD-EPI) equation refit without adjustment for race. Blood Venous blood specimen / Unknown Venipuncture / Unknown 12/30/2024 10:51 AM EDT 12/30/2024 11:25 AM EDT Makenna Fernandez MD LAB BLOOD ORDERABLES Elizabeth l Result Performing Organization Address City/[facility]/ZIP Co de Phone Number [facility] [address] [place] [address], [place] [phone] * Alanine aminotransferase (12/30/2024 10:51 AM EDT) ALT (SGPT) 24 10 - 60 unit/L LAB CHEMISTRY METHOD 12/30/2024 12:05 PM EDT [facility] Blood Venous blood specimen / Unknown Venipuncture / Unknown 12/30/2024 10:51 AM EDT 12/30/2024 11:25 AM EDT Makenna Fernandez MD LAB BLOOD ORDERABLES Elizabeth l Result [facility] [address] [place] [address], [place] [phone] * Aspartate aminotransferase (12/30/2024 10:51 AM EDT) [facility] AST (SGOT) 17 10 - 42 unit/L LAB CHEMISTRY METHOD 12/30/2024 12:05 PM EDT [facility] Blood Venous blood specimen / Unknown Venipuncture / Unknown 12/30/2024 10:51 AM EDT 12/30/2024 11:25 AM EDT Makenna Fernandez MD LAB BLOOD ORDERABLES Elizabeth l Result Performing Organization Address City/[facility]/ZIP Co de Phone Number [facility] [address] [place] [address], [place] [phone] * Electrolyte panel (12/30/2024 10:51 AM EDT) Pathologist [facility] [place] Sodium 140 133 - 145 mmol/L LAB CHEMISTRY METHOD 12/30/2024 12:05 PM EDT [facility] Potassium 4.5 3.5 - 5.5 mmol/L LAB CHEMISTRY METHOD 12/30/2024 12:05 PM EDT [facility] Chloride 107 96 - 110 mmol/L LAB CHEMISTRY METHOD 12/30/2024 12:05 PM EDT [facility] CO2 30 21 - 32 mmol/L LAB CHEMISTRY METHOD 12/30/2024 12:05 PM EDT [facility] Anion Gap 3 3 - 11 LAB CHEMISTRY METHOD 12/30/2024 12:05 PM EDT [facility] Blood Venous blood specimen / Unknown Venipuncture / Unknown 12/30/2024 10:51 AM EDT 12/30/2024 11:25 AM EDT us Makenna Fernandez MD LAB BLOOD ORDERABLES Elizabeth naranjo Result [facility] [address] [place] [address], from Last 3 Months Additional Health Concerns Infection Onset Date Last Indicated Enterovirus 01/04/2025 01/04/2025 Rhinovirus 01/04/2025 01/04/2025 Insurance MEDICAID - [place] Advance Directives * Full Code - Confirmed (Latest Code Status on File) Date Activated Date Inactivated Comments 01/04/2025 6:20 PM 01/04/2025 9:[address] atus was ascertained in the following way: Code status discussion: discussion with patient To update the patient's code status, place a code status order. Do not modify or discontinue any currently active code status orders. * Full Code - Default Date Activated Date Inactivated Comments 01/04/2025 5:09 PM 01/04/2025 6:20 PM This is orde r is used when code status has not been discussed with the patient, or code status is otherwise unknown/unconfirmed To update the patient's code status, place a code status order. Do not modify or discontinue any currently active code status orders. Care Teams Computer Programming Manager Relationship Specialty Start Date End Date Aparna Jiménez MD [address] [place] [address] PCP - General Internal Medicine 10/14/21
--- OUTSIDE RECORDS SUMMARY | 2025-01-13 18:40 | XMS_ITS | Encounter Summary ---
Author Organization [facility] Address [address] [place] [address] Care Team Providers Care Transformer Shop Supervisor Name Role Phone Aparna Jiménez MD Primary Care Provider [phone] Encounter Details Date Type Department Care Team (Late st Contact Info) Description 01/06/2025 Lab Requisition [facility] - Main Lab [address] [facility] [place] [address] Makenna Fernandez MD [address] [place], [place] [id number] Unspecified external cause status Social History Tobacco Use Types Packs/Day Years [...] of Assessment Author No 01/04/2025 1:01 PM Sandie Huang RN * Are you blind or do you have serious difficulty seeing, even when wearing glasses? Answer Date of Assessment Author No 01/04/2025 1:01 PM Sandie Huang RN * Do you have serious difficulty walking or climbing stairs? Answer Date of Assessment Author Yes 01/04/2025 1:01 PM Sandie Huang RN * Do you have serious difficulty dressing or bathing? Answer Date of Assessment Author No 01/04/2025 1:01 PM Sandie Huang RN * Because of a physical, mental, or emotional condition, do you have serious difficulty doing errandsalone such as visiting the doctor? Answer Date of Assessment Author Yes 01/04/2025 1:01 PM Sandie Huang RN documented as of this encounter Mental Status * Because of a physical, mental, or emotional condition, do you have serious difficulty concentrating, remembering, or making decisions? (5 years old or older) Answer Entry Date Author No 01/04/2025 1:01 PM Sandie Huang RN documented in this encounter Plan of Treatment Not on file documented as of this encounter Visit Diagnoses Diagnosis Unspecified external cause status documented in this encounter Additional Health Concerns Infection Onset Date Last Indicated Resolved Time Enterovirus 01/04/2025 01/04/2025 Rhinovirus 01/04/2025 01/04/2025 documented as of this encounter Care Teams Transformer Shop Supervisor Relationship Specialty Start Date End Date Aparna Jiménez MD [address] [place] [address] PCP - General Internal Medicine 10/14/21 documented as of this encounter
--- OUTSIDE RECORDS SUMMARY | 2025-01-13 18:40 | XMS_ITS | Encounter Summary ---
Author Organization [facility] Address [address] [place] [id number] Care Team Providers Care Cafeteria Server Name Role Phone Aparna Jiménez MD Primary Care Provider [phone] Encounter Details Date Type Department Care Team (Latest Contact Info) Description 08/05/2024 Lab Requisition [facility] - Main Lab [address] [facility] [place] [address] Makenna Fernandez MD [address] [place] [phone] Candidal stomatitis; Human immunodeficiency virus (HIV) disease ([facility] V24, [facility] V28) Social History Tobacco Use Types Packs/Day Years [...] AM EST documented as of this encounter Plan of Treatment Not on file documented as of this encounter Procedures Procedure Name Priority Date/Time Associated Diagnosis Comments CULTURE MISCELLANEOUS Routine 08/05/2024 12:00 AM EDT Candidal stomatitis Human immunodeficiency virus (HIV) disease ([facility] V24, [facility] V28) VAGINITIS PATHOGENS BY PCR Routine 08/05/2024 12:00 AM EDT Candidal stomatitis Human immunodeficiency virus (HIV) disease [place] [place] [facility] [place] CHLAMYDIA TRACHOMATIS AND NEISSERIA GONORRHOEAE PCR Routine 08/05/2024 12:00 AM EDT Candidal stomatitis Human immunodeficiency virus (HIV) disease ([facility] [place], [facility] V28) CHLAMYDIA TRACHOMATIS AND NEISSERIA GONORRHOEAE PCR Routine 08/05/2024 12:00 AM EDT Candidal stomatitis Human immunodeficiency virus (HIV) disease ([facility] [place], [facility] [place] CULTURE FUNGAL, OTHER Routine 08/05/2024 12:00 AM EDT Candidal stomatitis Human immunodeficiency virus (HIV) disease ([facility] [place], [facility] [place] documented in this encounter Results * (ABNORMAL) Culture miscellaneous (08/05/2024 12:00 AM EDT) Pathologist [facility] Miscellaneous Culture Few Alondra albicans/du bliniensis( A) 08/08/2024 11:28 AM EDT [facility] Comment: The organism value for this result has been updated. These results have been appended to the previously preliminary verified report. Edited result: Previously reported as Yeast on 08/07/2024 at 1047 EDT. Swab Oral cavity structure / Unknown 08/05/2024 08/05/2024 7:47 PM EDT Narrative [facility] - 08/08/2024 11:28 AM EDT Normal upper respiratory jackie present us Makenna Fernandez MD LAB MICROBIOLOGY - GENERA L ORDERABLES Final Result [facility] [address] [place] [address], * Chlamydia trachomatis and Neisseria gonorrhoeae molecular study (08/05/2024 12:00 AM EDT) Pathologist [facility] Neisseria gonorrhoeae PCR Negative Negative LAB MOLECULAR DIAGNOSTICS METHOD 08/06/2024 4:24 PM EDT [facility] Chlamydia trachomatis PCR Negative Negative LAB MOLECULAR DIAGNOSTICS METHOD 08/06/2024 4:24 PM EDT [facility] Urine Urine specimen from urethra / Unknown 08/05/2024 08/05/2024 7:17 PM EDT Makenna Fernandez MD LAB MICROBIOLOGY - GENERA L ORDERABLES Final Result [facility] [address] [place] [address], * Chlamydia trachomatis and Neisseria gonorrhoeae molecular study (08/05/2024 12:00 AM EDT) Neisseria gonorrhoeae PCR Negative Negative LAB MOLECULAR DIAGNOSTICS METHOD 10/21/2024 1:40 PM EDT [facility] Comment: This specimen type has not been evaluated for this method. Interpret results with caution. Chlamydia trachomatis PCR Negative Negative LAB MOLECULAR DIAGNOSTICS METHOD 10/21/2024 1:40 PM EDT [facility] Comment: This specimen type has not been evaluated for this method. Interpret results with caution. Swab Structure of anterior region of neck / Unknown 08/05/2024 08/05/2024 7:17 PM EDT Makenna Fernandez MD LAB MICROBIOLOGY - GENERA L ORDERABLES Edited Result - Final [facility] [address] [place] [address], * (ABNORMAL) Vaginitis pathogens molecular study (08/05/2024 12:00 AM EDT) Trichomonas vaginalis Negative Negative 08/06/2024 8:58 AM EDT [facility] Gardnerella vaginalis Positive(A) Negative 08/06/2024 8:58 AM EDT [facility] Alnodra Species Negative Negative 8:58 AM EDT [facility] Swab Vaginal structure / Unknown 08/05/2024 08/05/2024 7:17 PM EDT Makenna Fernandez MD LAB MICROBIOLOGY - GENERA L ORDERABLES Final Result Performing Organization Address City/[facility]/ZIP Co de Phone Number [facility] [address] [place] [address], [place] [phone] * (ABNORMAL) Culture fungal, other (08/05/2024 12:00 AM EDT) Culture, Fungus Light Growth Alondra albicans/du bliniensis( A) 09/04/2024 1:39 PM EDT [facility] Other 08/05/2024 08/05/2024 7:1 7 PM EDT Makenna Fernandez MD LAB MICROBIOLOGY - GENERA L ORDERABLES Final Result Performing Organization Address [facility]/[place] Co de Phone Number [facility] [address] [place] [address], [place] [phone] documented in this encounter Visit Diagnoses Diagnosis Candidal stomatitis Candidiasis of mouth Human immunodeficiency virus (HIV) disease ([facility] V24, [facility] V28) Human immunodeficiency virus [HIV] disease documented in this encounter Additional Health Concerns Infection Onset Date Last Indicated Resolved Time Respiratory Rule-Out 01/04/2025 01/04/2025 025 7:52 PM EDT COVID-19 Rule-Out 01/04/2025 01/04/2025 01/04/2025 7:52 PM EDT Enterovirus 01/04/2025 01/04/2025 Rhinovirus 01/04/2025 01/04/2025 documented as of this encounter Care Teams Cafeteria Server Relationship Specialty Start Date End Date Aparna Jiménez MD [address] [place], [place] PCP - General Internal Medicine 10/14/21 documented as of this encounter
--- OUTSIDE RECORDS SUMMARY | 2025-01-13 18:40 | XMS_ITS | Encounter Summary ---
Author Organization [facility] Address [address] [place] [phone] Care Team Providers Care Geodesy Teacher Name Role Phone Aparna Jiménez MD Primary Care Provider [phone] Encounter Details Date Type Department Care Team (Latest Contact Info) Description 12/18/2024 Lab Requisition [facility] - Main Lab [address] [facility] [place] [address] Makenna Fernandez MD [address] [place] [phone] Human immunodeficiency virus (HIV) disease ([facility] V24, [facility] V28) Social History Tobacco Use Types Packs/Day [...] Procedure Name Priority Date/Time Associated Diagnosis Comments CHLAMYDIA TRACHOMATIS AND NEISSERIA GONORRHOEAE PCR Routine 12/18/2024 12:00 AM EDT Human immunodeficiency virus (HIV) disease ([facility] V24, [facility] V28) documented in this encounter Results * Chlamydia trachomatis and Neisseria gonorrhoeae molecular study (12/18/2024 12:00 AM EDT) Neisseria gonorrhoeae PCR Negative Negative LAB MOLECULAR DIAGNOSTICS METHOD 12/19/2024 10:15 AM EDT [facility] Chlamydia trachomatis PCR Negative Negative LAB MOLECULAR DIAGNOSTICS METHOD 12/19/2024 10:15 AM EDT [facility] Swab Structure of anterior region of neck / Unknown 12/18/2024 12/18/2024 6:40 PM EDT us Makenna Fernandez MD LAB MICROBIOLOGY - GENERA L ORDERABLES Final Result [facility] [address] [place] [address], documented in this encounter Visit Diagnoses Diagnosis Human immunodeficiency virus (HIV) disease ([facility] V24, [facility] V28) Human immunodeficiency virus [HIV] disease documented in this encounter Additional Health Concerns Infection Onset Date Last Indicated Resolved Time Respiratory Rule-Out 01/04/2025 01/04/2025 025 7:52 PM EDT COVID-19 Rule-Out 01/04/2025 01/04/2025 01/04/2025 7:52 PM EDT Enterovirus 01/04/2025 01/04/2025 Rhinovirus 01/04/2025 01/04/2025 documented as of this encounter Care Teams Geodesy Teacher Relationship Specialty Start Date End Date Aparna Jiménez MD [address] [place] [address] PCP - General Internal Medicine 10/14/21 documented as of this encounter
[2025-01-14 11:52] LABS: Bacterial Vaginosis PCR POSITIVE (Negative); Candida Group PCR NOT DETECTED (Not Detect); Candida glab krusei PCR NOT DETECTED (Not Detect); Trichomonas vaginalis PCR NOT DETECTED (Not Detect)
== END 2025-01-13 15:34 | disposition home or self-care (01) ==
LOC: HO.CHCLNP 15:33
PROVIDERS: Visit Provider Internal Medicine
DX: N89.8 Other specified noninflammatory disorders of vagina (principal)
CPT/HCPCS: 81515; 87086